=== PATIENT | female | born 1955 | race Caucasian/White ===

== ENCOUNTER 2017-04-02 19:32 | Emergency (ER) | payer MEDICAID ==
[2017-04-02 20:24] VITALS: BP 140/86; PULSE 66; RESP 16; TEMP 98.3
--- NOTE | 2017-04-02 20:50 | XR ---
PROCEDURE: XR soft tissue neck DATE AND TIME: 04/02/2017 8:07 PM REFERRING PHYSICIAN: Riddhi Wall CLINICAL INDICATION: PHH, Pain TECHNIQUE: Department protocol. COMPARISON: None FINDINGS: The airway is unremarkable. The epiglottis has normal appearance on the lateral radiograph. Soft tiss ues and skeletal structures are negative for acute findings. IMPRESSION: NO ACUTE PROCESS.
--- NOTE | 2017-04-02 20:52 | ED ---
ENT HPI - General Chief complaint: ENT Stated complaint: Head pain Time Seen by Provider: 04/02/17 19:38 Source: patient, RN notes reviewed Mode of arrival: ambulatory Limitations: no limitations - History of Present Illness Initial comments: This is a 61-year-old female who presents to the emergency department chief complaint of right ear pain. Patient states that she developed a sore throat last and on Sunday developed right ear pain. She presented to her PCP on Sunday who prescribed her Augmentin. Patient states that her sore throat went away but her ear pain has gotten worse. She states she presented to her PCP this morning who advised her to present to the emergency department. Patient describes the pain as sharp and shooting occurring every couple minutes. She states the pain radiates from her inner ear to her right cheek. She denies cough, congestion, sore throat, fever, chills, nausea or vomiting, diarrhea or constipation, abdominal pain, hearing or visual changes, numbness or tingling, or rashes. - Related Data Home Medications Medication Instructions Recorded Confirmed Metoprolol Succinate [Toprol XL] 25 mg PO DAILY 07/08/14 04/02/17 Cholecalciferol (Vitamin D3) 50,000 unit PO DAILY 11/02/15 04/02/17 [Vitamin D] Previous Rx's Medication Instructions Recorded Edoxaban Tosylate [Savaysa] 60 mg PO DAILY tablet 09/06/15 Allergies Allergy/AdvReac Type Severity Reaction Status Date / Time codeine Allergy Anaphylaxis Verified 04/02/17 19:37 Review of Systems ROS Statement: Those systems with pertinent positive or pertinent negative responses have been documented in the HPI. ROS Other: All systems not noted in ROS Statement are negative. Past Medical History Past Medical History: Hypertension Additional Past Medical History / Comment(s): ARRYTHMIA/SARCODOSIS History of Any Multi-Drug Resistant Organisms: None Reported Past Surgical History: Breast Surgery, Orthopedic Surgery, Tubal Ligation Additional Past Surgical History / Comment(s): BREAST BIOPSY X 3/RT WRIST/LT KNEE SURG, Broke back a couple years ago. Past Anesthesia/Blood Transfusion Reactions: No Reported Reaction Past Psychological History: No Psychological Hx Reported Smoking Status: Former smoker Past Alcohol Use History: None Reported Past Drug Use History: None Reported - Past Family History Mother Family Medical History: Diabetes Mellitus, Hypertension General Exam - General Exam Comments Initial Comments: General: Awake and alert, well-developed; in no apparent distress. HEENT: Head atraumatic, normocephalic. Pupils are equal, round and reactive to light. Extraocular movements intact. Oropharynx moist without erythema or exudate. Bilateral TMs are mildly erythematous. Right TM has mild effusion. Neck: Supple. Normal ROM. No adenopathy. Cardiovascular: Regular rate and rhythm. No murmurs, rubs or gallops. Chest symmetrical. Respiratory: Lungs clear to auscultation bilaterally. No wheezes, rales or rhonchi. Normal respiratory effort with no use of accessory muscles. Skin: [place], warm and dry without rashes or lesions. Neurological: Alert and oriented x3. CN II-XII grossly intact. Speech is fluent and answers are appropriate. No focal neuro deficits. Psychiatric: Normal mood and affect. No overt signs of depression or anxiety noted. Limitations: no limitations Course Vital Signs 04/02/17 19:35 Temperature 98.2 F Pulse Rate 70 Respiratory 20 Rate Blood Pressure 176/76 O2 Sat by Pulse 97 Oximetry Medical Decision Making - Medical Decision Making This case was discussed with attending physician, Dr. Ware. Xray soft tissue of neck revealed no acute process. Patient will be discharged home with recommendation finish her course of Augmentin. She is to return to the emergency department if pain does not resolve after course of Augmentin. Patient voices understanding and is in agreement with the plan. All questions were answered. - Radiology Data Radiology results: report reviewed Soft Tissue Neck Findings: The airway is unremarkable. The epiglottis has normal appearance on the lateral radiograph. Soft tissues and skeletal structures are negative for acute findings. Disposition Clinical Impression: Otitis media Disposition: HOME SELF-CARE Condition: Good Instructions: Earache (ED) Additional Instructions: Please finish course of Augmentin. Please follow up with primary care provider within 1-2 days. Please follow up with PCP after course of Augmentin if pain is still present. Return to emergency department if symptoms should worsen or any concerns arise. Referrals: Fran Escobar MD [Primary Care Provider] - 1-2 days Time of Disposition: 20:54
== END 2017-04-02 21:05 | disposition home or self-care (01) ==
LOC: EC 19:32
DX: H66.91 Otitis media, unspecified, right ear (principal); I10 Essential (primary) hypertension; Z87.891 Personal history of nicotine dependence; Z79.899 Other long term (current) drug therapy; Z88.5 Allergy status to narcotic agent
CPT/HCPCS: 70360; 99284

== ENCOUNTER → 2017-08-02 | Outpatient (CLI) | payer MEDICAID ==
[2017-08-02 08:11] LABS: ALT 32 U/L (9-52); AST 26 U/L (14-36); Albumin 3.9 g/dL (3.5-5.0); Alkaline Phosphatase 90 U/L (38-126); Anion Gap 12 mmol/L; Blood Urea Nitrogen 13 mg/dL (7-17); Calcium 9.3 mg/dL (8.4-10.2); Carbon Dioxide 26 mmol/L (22-30); Chloride 106 mmol/L (98-107); Cholesterol 171 mg/dL (<200); Glucose 103 mg/dL (74-99); HDL Cholesterol 43 mg/dL (40-60); LDL Cholesterol,Calculated 102 mg/dL (0-99); Potassium 4.7 mmol/L (3.5-5.1); Sodium 144 mmol/L (137-145); Total Bilirubin 0.5 mg/dL (0.2-1.3); Total Protein 6.7 g/dL (6.3-8.2); Triglycerides 131 mg/dL (<150)
[2017-08-02 21:23] LABS: Hemoglobin A1C 5.5 % (4.0-6.0)
== END | disposition home or self-care (01) ==
LOC: LABWHC1 07:10
PROVIDERS: ATTEND Internal Medicine Cardiovascular Disease
DX: E78.5 Hyperlipidemia, unspecified (principal); Z86.39 Personal history of other endocrine, nutritional and metabolic disease
CPT/HCPCS: 36415; 80053; 80061; 83036

== ENCOUNTER 2018-01-06 10:10 | Observation (INO) | payer BC, MEDICAID ==
[2018-01-06] MEDS ORDERED: IBUPROFEN 600 MG TAB PO STA (10:46)
[2018-01-06] MEDS ORDERED: DIAZEPAM 5 MG TAB PO STA (10:46)
[2018-01-06] MEDS ORDERED: DEXAMETHASONE 4 MG TAB PO STA (10:47)
--- NOTE | 2018-01-06 10:54 | ED ---
Back Pain HPI - General Chief Complaint: Back Pain/Injury Stated Complaint: Back Spasms Time Seen by Provider: 01/06/18 10:38 Source: patient Limitations: no limitations - History of Present Illness Initial Comments: 62-year-old female presenting with right paraspinal lumbar back pain. Patient states began 1 week ago without inciting event. She states has been worsening and causing her to be unable to sleep secondary to spasms. States she has a history of similar symptoms in the past her last flareup being in April. States at that time she was treated with steroids and Flexeril with relief. Patient sees Dr. Henson states she has an appointment with him on January 22. States she has been taking tramadol and Flexeril at home without relief. She denies any saddle anesthesia, lower extremely weakness, numbness or paresthesias , loss of bowel or bladder control or urinary retention. Denies history of CA. Patient states she has Atrial Fibrillation and takes Metoprolol daily but has not been on anticoagulation therapy in 3 years. Denies chest pain or shortness of breath. - Related Data Home Medications Medication Instructions Recorded Confirmed Metoprolol Succinate [Toprol XL] 25 mg PO DAILY 07/08/14 04/02/17 Cholecalciferol (Vitamin D3) 50,000 unit PO DAILY 11/02/15 04/02/17 [Vitamin D] Previous Rx's Medication Instructions Recorded Edoxaban Tosylate [Savaysa] 60 mg PO DAILY tablet 09/06/15 HYDROcodone/APAP 5-325MG [[place] 5] 1 - 2 each PO Q6HR PRN #12 tab 01/06/18 traMADol HCL [traMADol HCL ER] 100 mg PO DAILY 3 Days #3 cap 01/06/18 Allergies Allergy/AdvReac Type Severity Reaction Status Date / Time codeine Allergy Anaphylaxis Verified 04/02/17 19:37 Review of Systems ROS Statement: Those systems with pertinent positive or pertinent negative responses have been documented in the HPI. Review of Systems Constitutional: Denies fever, chills Eyes: Denies change in vision, Denies pain Ears, nose, mouth, throat: Denies headaches, Denies sore throat Cardiovascular: Denies chest pain. Denies palpitations Respiratory: Denies shortness of breath, Denies cough Gastrointestinal: Denies abdominal pain. Denies nausea, vomiting, diarrhea. Genitourinary: Denies hematuria, Denies infections Musculoskeletal: Positive lumbar paraspinal pain. Integumentary: Denies rash Neurological: Denies headache, focal weakness, focal numbness Psychiatric: Denies anxiety, Denies depression Hematologic/Lymphatic: Denies easy bleeding or bruising ROS Other: All systems not noted in ROS Statement are negative. Past Medical History Past Medical History: Hypertension Additional Past Medical History / Comment(s): ARRYTHMIA/SARCODOSIS History of Any Multi-Drug Resistant Organisms: None Reported Past Surgical History: Breast Surgery, Orthopedic Surgery, Tubal Ligation Additional Past Surgical History / Comment(s): BREAST BIOPSY X 3/RT WRIST/LT KNEE SURG, Broke back a couple years ago. Past Anesthesia/Blood Transfusion Reactions: No Reported Reaction Past Psychological History: No Psychological Hx Reported Smoking Status: Former smoker Past Alcohol Use History: None Reported Past Drug Use History: None Reported - Past Family History Mother Family Medical History: Diabetes Mellitus, Hypertension General Exam - General Exam Comments Initial Comments: General: Awake, alert, No acute Distress HENT: Normocephalic. Atraumatic Eyes: PERRL. EOMI. No scleral icterus. No injected conjunctiva Neck: Full ROM Chest/Lungs: Clear to auscultation bilaterally. No wheezing, rhonchi, or rales Cardiac: Regular rate, rhythm. No murmurs or rubs Abdomen/GI: Soft, nontender, nondistended. No rebound, guarding, or rigidity. Musculoskeletal: Full ROM. L3-S1 sensation intact bilaterally. Normal gait. No midline cervical, thoracic, or lumbar tenderness. Right sacroiliac pain. Skin: Warm, dry, intact Neurologic: A/Ox3, no weakness, no sensory deficit, no abdnormal gait, no coordination deficit Limitations: no limitations Course Vital Signs 01/06/18 01/06/18 10:14 11:25 Temperature 98.1 F Pulse Rate 65 63 Respiratory 18 18 Rate Blood Pressure 132/54 148/65 O2 Sat by Pulse 99 98 Oximetry Medical Decision Making - Medical Decision Making 52-year-old female presenting with back pain. Initial exam the patient is awake , alert, no acute distress. VSS. Patient has no saddle anesthesia, bowel or bladder symptoms, midline lumbar pain, and is neurologically intact. She afebrile and nontoxic appearing. She has equal pulses and no chest pain or abdominal pain. Infectious process, epidural abscess, or aortic pathology unlikely at this time. Patient has no history of kidney stones and pain is not consistent with that clinical presentation. Imaging is negative for acute process. She is able to ambulate. Patient given Decadron, [place], And Motrin on department. Patient's pain was mildly improved. Offered patient admission at this time patient would like to be discharged home and follow-up with her back doctor this week. No further emergent workup indicated. The patient was given return to ED instructions. They were instructed to follow up with their primary care provider. Stable for discharge at this time. Disposition Clinical Impression: Back pain, Mechanical back pain Disposition: HOME SELF-CARE Condition: Good Instructions: Acute Low Back Pain (ED), Chronic Back Pain (ED) Additional Instructions: Call your doctor this week. Return to ED if unable or urinate or have bowel movements, if you are unable to walk, or if you lose control of your bowel or bladder. Prescriptions: HYDROcodone/APAP 5-325MG [[place] 5] 1 - 2 each PO Q6HR PRN #12 tab PRN Reason: Pain traMADol HCL [traMADol HCL ER] 100 mg PO DAILY 3 Days #3 cap Is patient prescribed a controlled substance at d/c from ED?: Yes When asked, does pt state using other controlled substances?: Yes If prescribed controlled substance>3 days was MAPS reviewed?: Prescribed <3 Days Referrals: Jodee Ramachandran MD [Primary Care Provider] - 1-2 days Rosenda Henson DO [Doctor of Osteopathic Medicine] - 1-2 days
--- NOTE | 2018-01-06 12:02 | XR ---
EXAMINATION TYPE: XR sacroiliac joint comp BILAT , 3 VIEWS DATE OF EXAM ORDERED: 01/06/2018 HISTORY: Pain. COMPARISON: None. FINDINGS: The sacroiliac joints are unremarkable. There is no sclerosis or erosions. There is degene rative disc disease at L5-S1. IMPRESSION: 1. NORMAL SACROILIAC JOINTS. 2. DEGENERATIVE DISC DISEASE, L5-S1.
--- NOTE | 2018-01-06 12:04 | XR ---
EXAMINATION TYPE: XR lumbar spine 2 or 3V , 3 VIEWS DATE OF EXAM ORDERED: 01/06/2018 HISTORY: Pain. COMPARISON: Previous study dated 10/26/2010. FINDINGS: There is degenerative disc disease and a vacuum phenomena present at L5-S1. Bony alignment is normal. There is no spondylolysis or spondylolisthesis. The pedicles are intact.. IMPRESSION: 1. NO ACUTE OSSEOUS LESION. 2. DEGENERATIVE CHANGE.
[2018-01-06] MEDS ORDERED: HYDROcodone/APAP 5-325MG 1 EACH TAB PO STA (12:22)
[2018-01-06] MEDS ORDERED: IBUPROFEN 400 MG TAB PO PRN (14:05)
[2018-01-06] MEDS ORDERED: ACETAMINOPHEN TAB 325 MG TAB PO PRN (14:05)
--- NOTE | 2018-01-06 14:15 | ED ---
Disposition Clinical Impression: Back pain, Mechanical back pain, Intractable low back pain Disposition: ADMITTED IP TO THIS [facility] Condition: Good Instructions: Acute Low Back Pain (ED), Chronic Back Pain (ED) Additional Instructions: Call your doctor this week. Return to ED if unable or urinate or have bowel movements, if you are unable to walk, or if you lose control of your bowel or bladder. Prescriptions: HYDROcodone/APAP 5-325MG [[place] 5] 1 - 2 each PO Q6HR PRN #12 tab PRN Reason: Pain traMADol HCL [traMADol HCL ER] 100 mg PO DAILY 3 Days #3 cap Referrals: Rosenda Henson DO [Doctor of Osteopathic Medicine] - 1-2 days Jodee Ramachandran MD [Primary Care Provider] - 1-2 days Decision Date: 01/06/18 Decision Time: 14:15
--- NOTE | 2018-01-06 14:16 | P.HPIM ---
History of Present Illness H&P Date: 01/06/18 Chief Complaint: Back pain 62-year-old female presented to the emergency department because of right sided lower back pain. Patient states began 1 week ago after she was working with a shovel in the barn. Patient's back pain history goes back to about 7 years ago when she injured her back after she fell off of a horse. After the fall she developed 2 vertebral compression fractures. She was evaluated by orthopedics who did not recommend surgical intervention. She states that the pain has been worsening and causing her to be unable to sleep secondary to spasms. She stated that she has been taking tramadol and Flexeril at home without relief. States she has a history of similar symptoms in the past, her last flareup being in April. Patient has been seeing Dr. Henson, last appointment was in May. Her next appointment will be January 22. She denies any numbness or paresthesias in the lower extremities, no lower extremely weakness, no loss of bowel or bladder control or urinary retention. No chest pain or shortness of breath. No nausea or vomiting. No fevers or chills. Review of Systems 12 point review of system performed, negative except HPI Past Medical History Past Medical History: Hypertension Additional Past Medical History / Comment(s): ARRYTHMIA/SARCODOSIS History of Any Multi-Drug Resistant Organisms: None Reported Past Surgical History: Breast Surgery, Orthopedic Surgery, Tubal Ligation Additional Past Surgical History / Comment(s): BREAST BIOPSY X 3/RT WRIST/LT KNEE SURG, Broke back a couple years ago. Past Anesthesia/Blood Transfusion Reactions: No Reported Reaction Past Psychological History: No Psychological Hx Reported Smoking Status: Former smoker Past Alcohol Use History: None Reported Past Drug Use History: None Reported - Past Family History Mother Family Medical History: Diabetes Mellitus, Hypertension Medications and Allergies Home Medications Medication Instructions Recorded Confirmed Type Acetaminophen/Diphenhydramine 2 tab PO HS 01/06/18 01/06/18 History [Tylenol PM 500-25mg] Cyclobenzaprine [Flexeril] 10 mg PO TID PRN 01/06/18 01/06/18 History HYDROcodone/APAP 5-325MG [[place] 5] 1 - 2 each PO Q6HR PRN #12 tab 01/06/18 Rx Loperamide HCl [Imodium A-D] 1 mg PO DAILY 01/06/18 01/06/18 History Metoprolol Succinate [Toprol XL] 25 mg PO DAILY 01/06/18 01/06/18 History traMADol HCL [Ultram] 100 mg PO Q6H PRN 01/06/18 01/06/18 History traMADol HCL [traMADol HCL ER] 100 mg PO DAILY 3 Days #3 cap 01/06/18 Rx Allergies Allergy/AdvReac Type Severity Reaction Status Date / Time codeine Allergy Anaphylaxis Verified 01/06/18 13:42 Physical Exam Vitals: Vital Signs Temp Pulse Resp BP Pulse Ox 01/06/18 11:25 63 18 148/65 98 01/06/18 10:14 98.1 F 65 18 132/54 99 Intake and Output 01/05/18 01/06/18 01/06/18 22:59 06:59 14:59 Other: Weight 92.986 kg Constitutional: No acute distress, conversant, pleasant Eyes:Anicteric sclerae, moist conjunctiva, no lid-lag, PERRLA, ENMT: Oropharynx clear, no erythema, exudates Neck: Supple, FROM, no masses, or JVD, No carotid bruits, No thyromegaly Lungs: Clear to auscultation, Clear to percussion, Normal respiratory effort, no accessory muscle use Cardiovascular: Heart regular in rate and rhythm, No murmurs, gallops, or rubs, No peripheral edema Abdominal: Soft, Nontender, no guarding, rebound or rigidity, Normoactive bowel sounds, No hepatomegaly, No splenomegaly, No palpable mass Skin: Normal temperature, tone, texture, turgor, no induration, No subcutaneous nodules, No rash, lesions, No ulcers Extremities: Right sided lower back tenderness to deep palpation. No digital cyanosis, No clubbing, Pedal pulses intact and symmetrical, Radial pulses intact and symmetrical, No calf tenderness Psychiatric: Alert and oriented to person, place and time, appropriate affect, intact judgement Neuro: Muscles Strength 5/5 in all 4 extremities, Sensation to light touch grossly present throughout, Cranial nerves II-XII grossly intact, no focal sensory deficits Assessment and Plan Plan: Acute on chronic lower back pain, intractable Failed outpatient therapy X-rays reviewed Consult orthopedics, if no surgery recommended would order physical therapy evaluation Pain control with narcotics, NSAIDs and Tylenol as needed History of hypertension, history of sarcoidosis: Stable Resume home meds DVT prophylaxis Ambulatory, low risk, not indicated
[2018-01-06] MEDS: HYDROmorphone 1 MG/ML 1 ML SYRINGE IV PRN ×2 (17:50→21:01)
[2018-01-06] MEDS ORDERED: ACETAMINOPHEN TAB 500 MG TAB PO SCH (21:00)
[2018-01-06] MEDS: diphenhydrAMINE 25 MG CAP PO SCH (23:10)
[2018-01-06] MEDS: oxyCODONE-APAP 5-325MG 1 EACH TAB PO PRN (23:13)
[2018-01-07] MEDS: HYDROmorphone 1 MG/ML 1 ML SYRINGE IV PRN ×5 (02:26→22:24)
[2018-01-07] MEDS: METOPROLOL SUCCINATE (ER) 25 MG TAB.ER.24H PO SCH (08:09)
[2018-01-07 08:12] LABS: Anion Gap 10 mmol/L; Blood Urea Nitrogen 23 mg/dL (7-17); Calcium 9.4 mg/dL (8.4-10.2); Carbon Dioxide 22 mmol/L (22-30); Chloride 106 mmol/L (98-107); Glucose 146 mg/dL (74-99); Phosphorus 3.1 mg/dL (2.5-4.5); Potassium 4.8 mmol/L (3.5-5.1); Sodium 138 mmol/L (137-145)
[2018-01-07 08:18] LABS: Basophils % (A) 0 %; Eosinophils % (A) 0 %; HCT 37.3 % (34.0-46.0); HGB 12.5 gm/dL (11.4-16.0); Lymphocytes # (A) 1.4 k/uL (1.0-4.8); Lymphocytes % (A) 10 %; MCH 30.6 pg (25.0-35.0); MCHC 33.4 g/dL (31.0-37.0); MCV 91.4 fL (80.0-100.0); Mean Platelet Volume 7.9; Monocytes # (A) 0.7 k/uL (0-1.0); Monocytes % (A) 5 %; Neutrophils # (A) 11.8 k/uL (1.3-7.7); Neutrophils % (A) 84 %; Platelet Count 234 k/uL (150-450); RBC 4.09 m/uL (3.80-5.40); RDW 13.2 % (11.5-15.5)
--- NOTE | 2018-01-07 08:51 | P.CNOR ---
History of Present Illness - [facility] Consult date: 01/07/18 Requesting physician: Annalee Javed Consult reason: low back pain (Right-sided low back pain and muscle spasm) History of present illness: Patient is a very pleasant 62-year-old female who is well known to our service who is seen and examined at bedside for further evaluation of right-sided low back pain. She states she was shoveling in the barn approximately one week ago and the following day started to experience significant right-sided low back pain. She had similar symptoms after the same type of movement in April 2017. At that time Flexeril and a steroid taper significantly improved her symptoms. She currently denies any lower extremity weakness or radiculopathy bilaterally. Since her admittance to the hospital, her pain is somewhat better but not adequately resolved. She is known have degenerative changes at L5-S1. She is scheduled for follow-up evaluation outpatient setting on 01/22/[address] Henson. She denies specific injury but knows she was shoveling in a flexed forward position which has historically exacerbated her symptoms. Past Medical History Past Medical History: Hypertension Additional Past Medical History / Comment(s): ARRYTHMIA/SARCODOSIS History of Any Multi-Drug Resistant Organisms: None Reported Past Surgical History: Breast Surgery, Orthopedic Surgery, Tubal Ligation Additional Past Surgical History / Comment(s): BREAST BIOPSY X 3/RT WRIST/LT KNEE SURG, Broke back a couple years ago. 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 - Past Family History Mother Family Medical History: Diabetes Mellitus, Hypertension Medications and Allergies Home Medications Medication Instructions Recorded Confirmed Type Acetaminophen/Diphenhydramine 2 tab PO HS 01/06/18 01/06/18 History [Tylenol PM 500-25mg] Cyclobenzaprine [Flexeril] 10 mg PO TID PRN 01/06/18 01/06/18 History HYDROcodone/APAP 5-325MG [[place] 5] 1 - 2 each PO Q6HR PRN #12 tab 01/06/18 Rx Loperamide HCl [Imodium A-D] 1 mg PO DAILY 01/06/18 01/06/18 History Metoprolol Succinate [Toprol XL] 25 mg PO DAILY 01/06/18 01/06/18 History traMADol HCL [Ultram] 100 mg PO Q6H PRN 01/06/18 01/06/18 History traMADol HCL [traMADol HCL ER] 100 mg PO DAILY 3 Days #3 cap 01/06/18 Rx predniSONE 20 mg PO DIRECTED #24 tab 01/07/18 Rx Allergies Allergy/AdvReac Type Severity Reaction Status Date / Time codeine Allergy Anaphylaxis Verified 01/06/18 13:42 Physical Examination Physical exam: Patient is awake, alert, and oriented 3 Vital signs stable Good chest excursion with deep inspiration and expiration Abdomen soft nontender Examination of lumbar spine reveals skin is intact with no abrasions, lacerations, or bruises; no erythema, purulence or signs of infection He will palpation over the right lower lumbar spine with evidence of paravertebral spasm Dorsiflexion, plantarflexion, and extensor hallucis longus positive sustained bilaterally Lower extremity strength 5/5 bilaterally Patellar reflex 2+ bilaterally and Achilles reflexes 0+ bilaterally No lower extremity hyperreflexia bilaterally No signs or symptoms of DVT; no calf pain No pain with internal and external rotation of the hips bilaterally Neurovascularly intact Results Pertinent studies: X-rays lumbosacral spine: L5-S1 degenerative disease and vacuum disc phenomenon ; overall alignment appears to be adequately maintained; no evidence of spondylolysis or spondylolisthesis; no acute osseous lesion X-rays of the sacroiliac joints: Normal sacroiliac joints with no sclerosis or erosions; L5-S1 degenerative disc disease - Labs Labs: Abnormal Lab Results - Last 24 Hours (Table) 01/07/18 01/07/18 Range/Units 07:37 07:37 WBC 14.0 H (3.8-10.6) k/uL Neutrophils # 11.8 H (1.3-7.7) k/uL BUN 23 H (7-17) mg/dL Glucose 146 H (74-99) mg/dL H & H 01/07/18 Range/Units 07:37 Hgb 12.5 (11.4-16.0) gm/dL Hct 37.3 (34.0-46.0) % Result Diagrams: 01/07/18 07:37 01/07/18 07:37 Assessment and Plan Assessment: Assessment: Intractable right sided low back pain L5-S1 degenerative disc disease Lumbar Paravertebral muscle spasm (1) Degenerative disc disease at L5-S1 level Current Visit: Yes Status: Acute Code(s): M51.36 - OTHER INTERVERTEBRAL DISC DEGENERATION, LUMBAR REGION SNOMED Code(s): 61175713 (2) Lumbar paraspinal muscle spasm Current Visit: Yes Status: Acute Code(s): M62.830 - MUSCLE SPASM OF BACK SNOMED Code(s): 22023319911907987 (3) Intractable low back pain Current Visit: Yes Status: Acute Code(s): M54.5 - LOW BACK PAIN SNOMED Code(s): 83084919867429860 Plan: Plan: 1. Patient is known to have degenerative changes at L5-S1. Imaging shows no acute change of the sacroiliac joints. Patient has been experiencing muscle spasms of right-sided low back pain that is exacerbated with increased activities. She denies any lower extremity weakness or radiculopathy bilaterally. She is not having any neurological change. Her initial symptoms started approximately 1 week ago after shoveling in the barn. She had similar symptoms in April 2017 in which her symptoms were alleviated with steroid medication and muscle relaxers. Since her admittance to the hospital, she has been receiving Flexeril, Dilaudid, oxycodone, Motrin, and Tylenol as prescribed as needed for relief of her symptoms. She has not been receiving steroid medication. At this time, we'll plan to add Solu-Medrol 80 mg IV every 8 hours during her admittance. We will discontinue Motrin. We will also plan to discharge her on a 12 day prednisone taper which she will take prednisone 20 mg tabs, 3 tabs for 4 days, 2 tabs for 4 days, then 1 tab for 4 days. She may also continue with Flexeril in the outpatient setting as previously prescribed. We will plan have her follow-up as previous scheduled on 01/22/2018 for further evaluation and treatment. We did discuss we are not currently planning for acute surgical intervention regards to her lumbosacral spine. She agrees this is a good plan of care we'll plan to follow-up as scheduled. 2. Medicine to continue following the patient closely 3. From an orthopedic spine standpoint, patient is currently cleared for discharge once cleared by medicine 4. Following discharge, patient will follow up with Dr. Terry Henson at [facility] as previously scheduled 5. Patient has been discussed in detail with Dr. Terry Henson and he agrees with this plan Time with Patient: Less than 30
[2018-01-07] MEDS: oxyCODONE-APAP 5-325MG 1 EACH TAB PO PRN ×3 (08:58→23:35)
[2018-01-07] MEDS: methylPREDNISolone SOD SUCCI 125 MG/2 ML VIAL IV SCH ×3 (08:58→23:36)
--- NOTE | 2018-01-07 11:50 | P.PN ---
Subjective Progress Note Date: 01/07/18 Patient is feeling slightly better today. She was seen by orthopedic and earlier and was started on IV steroids. She said that her pain is mostly when she is getting up from the bed and transitioning to the chair or vice versa. She denies any radiculopathy or lower extremity weakness. Objective - Vital Signs Vital signs: Vital Signs Temp 98.3 F 01/07/18 06:25 Pulse 70 01/07/18 06:25 Resp 16 01/07/18 08:58 BP 117/68 01/07/18 06:25 Pulse Ox 94 L 01/07/18 06:25 Intake & Output 01/06/18 01/07/18 01/07/18 18:59 06:59 18:59 Weight 92.986 kg Other: # Voids 2 1 # Bowel Movements 0 - Exam General: The patient is awake and alert, in no distress Eye: there is normal conjunctiva bilaterally. Neck: The neck is supple, there is no JVD. Cardiovascular: Normal S1-S2, no S3-S4, no murmurs. Respiratory: Lungs clear to auscultation bilaterally Gastrointestinal: Abdomen is soft, nontender Musculoskeletal: There is no pedal edema. Neurological:. Speech is normal. Skin: Skin is warm and dry - Labs CBC & Chem 7: 01/07/18 07:37 01/07/18 07:37 Labs: Abnormal Lab Results - Last 24 Hours (Table) 01/07/18 01/07/18 Range/Units 07:37 07:37 WBC 14.0 H (3.8-10.6) k/uL Neutrophils # 11.8 H (1.3-7.7) k/uL BUN 23 H (7-17) mg/dL Glucose 146 H (74-99) mg/dL Assessment and Plan Assessment: Acute on chronic lower back pain, intractable Failed outpatient therapy X-rays reviewed Consult orthopedics, awaiting physical therapy evaluation Pain control with narcotics and Tylenol as needed Started on IV Solu-Medrol by orthopedic and plan to transition to oral prednisone tomorrow History of hypertension, history of sarcoidosis: Stable Resume home meds DVT prophylaxis Ambulatory, low risk, not indicated Anticipate discharge home tomorrow
[2018-01-07] MEDS ORDERED: PANTOPRAZOLE 40 MG/10 ML VIAL IVP SCH (12:00)
[2018-01-07] MEDS ORDERED: PNEUMOCOCCAL VACC-PNEUMOVAX 23 25 MCG/0.5 ML VIAL IM ONE (15:53)
[2018-01-07] MEDS: diphenhydrAMINE 25 MG CAP PO SCH (22:04)
[2018-01-08] MEDS: HYDROmorphone 1 MG/ML 1 ML SYRINGE IV PRN ×2 (04:59→12:56)
[2018-01-08] MEDS: oxyCODONE-APAP 5-325MG 1 EACH TAB PO PRN ×4 (05:00→21:09)
[2018-01-08] MEDS: METOPROLOL SUCCINATE (ER) 25 MG TAB.ER.24H PO SCH (09:42)
[2018-01-08] MEDS: PANTOPRAZOLE 40 MG TABLET PO SCH (09:42)
[2018-01-08] MEDS: methylPREDNISolone SOD SUCCI 125 MG/2 ML VIAL IV SCH (09:43)
--- NOTE | 2018-01-08 13:16 | P.PN ---
Subjective Progress Note Date: 01/08/18 Patient reports that her back pain is worse today. She denies any shooting pain or radiculopathy. No lower extremity numbness or weakness. She is requiring IV dye lauded more frequently. She was tearful when I saw her this morning. She reported that she is not ready to go home yet. She did not get up for work with physical therapy. Objective - Vital Signs Vital signs: Vital Signs Temp 97.9 F 01/08/18 07:00 Pulse 63 01/08/18 07:00 Resp 20 01/08/18 07:00 BP 135/75 01/08/18 07:00 Pulse Ox 94 L 01/08/18 07:00 Intake & Output 01/07/18 01/08/18 01/08/18 18:59 06:59 18:59 Intake Total 1200 Balance 1200 Intake: Oral 1200 Other: Voiding Method Toilet Toilet # Voids 4 2 - Exam General: The patient is awake and alert, in no distress Eye: there is normal conjunctiva bilaterally. Neck: The neck is supple, there is no JVD. Cardiovascular: Normal S1-S2, no S3-S4, no murmurs. Respiratory: Lungs clear to auscultation bilaterally Gastrointestinal: Abdomen is soft, nontender Musculoskeletal: There is no pedal edema. Neurological:. Speech is normal. Skin: Skin is warm and dry - Labs CBC & Chem 7: 01/07/18 07:37 01/07/18 07:37 Assessment and Plan Assessment: Acute on chronic lower back pain, intractable Failed outpatient therapy X-rays reviewed Patient was seen and evaluated by orthopedic. Started on high-dose IV Solu- Medrol will be switched to oral prednisone taper course tomorrow. Pain control with narcotics and Tylenol as needed No further recommendations by orthopedic. History of hypertension, history of sarcoidosis: Stable Resume home meds DVT prophylaxis with subcu heparin Discussed with the patient switching pain medication to oral today to make sure her pain is well-controlled. Plan for discharge tomorrow. Awaiting PT evaluation
[2018-01-08] MEDS: HEPARIN SODIUM,PORCINE 5,000 UNIT/ML 1 ML VIAL SQ SCH ×2 (14:38→21:10)
[2018-01-08 16:53] VITALS: RESP 16
[2018-01-08] MEDS: CYCLOBENZAPRINE 10 MG TAB PO PRN ×2 (17:24→21:39)
[2018-01-08] MEDS: diphenhydrAMINE 25 MG CAP PO SCH (23:13)
[2018-01-09] MEDS: oxyCODONE-APAP 5-325MG 1 EACH TAB PO PRN ×4 (02:12→14:45)
[2018-01-09 06:12] VITALS: BP 147/73; PULSE 63; TEMP 97.1
[2018-01-09] MEDS: CYCLOBENZAPRINE 10 MG TAB PO PRN (07:45)
[2018-01-09] MEDS: METOPROLOL SUCCINATE (ER) 25 MG TAB.ER.24H PO SCH (08:09)
[2018-01-09] MEDS: HEPARIN SODIUM,PORCINE 5,000 UNIT/ML 1 ML VIAL SQ SCH (08:09)
[2018-01-09] MEDS: PANTOPRAZOLE 40 MG TABLET PO SCH (08:09)
[2018-01-09] MEDS ORDERED: predniSONE 20 MG TAB PO SCH (09:00)
--- NOTE | 2018-01-09 13:01 | P.DS ---
Providers Date of admission: 01/06/18 14:05 Expected date of discharge: 01/09/18 Attending physician: Annalee Javed MD Consults: 01/06/18 14:07 Consult Physician Routine Consulting Provider: Rosenda Henson Consult Reason/Comments: back pain Do you want consulting provider notified?: Yes Primary care physician: [facility] Course: This is a 62-year-old female with past medical history significant for chronic low back pain, essential hypertension, and underlying sarcoidosis who presented to the emergency room with intractable back pain acute on chronic that started after she was shoveling the barn. Patient was evaluated in the emergency room and x-ray of the lumbar spine showed chronic degenerative joint disease. Patient did not have any radiculopathy or muscle weakness. She was placed on observation was seen and evaluated by orthopedics. She was treated with end- stage, muscle relaxers, Tylenol, and opiates. She was given IV steroid 3 doses and switch to taper course prednisone per orthopedic recommendations. She will be discharged home in a stable condition. On the day of discharge her pain was very well controlled. Patient Condition at Discharge: Good Plan - Discharge Summary New Discharge Prescriptions: New HYDROcodone/APAP 5-325MG [[place] 5] 1 - 2 each PO Q6HR PRN #12 tab PRN Reason: Pain traMADol HCL [traMADol HCL ER] 100 mg PO DAILY 3 Days #3 cap predniSONE 20 mg PO DIRECTED #24 tab Pantoprazole [Protonix] 40 mg PO AC-BRKFST #14 tablet.dr Continue Metoprolol Succinate [Toprol XL] 25 mg PO DAILY Loperamide HCl [Imodium A-D] 1 mg PO DAILY Cyclobenzaprine [Flexeril] 10 mg PO TID PRN PRN Reason: Pain Discontinued Acetaminophen/Diphenhydramine [Tylenol PM 500-25mg] 2 tab PO HS traMADol HCL [Ultram] 100 mg PO Q6H PRN PRN Reason: Pain Discharge Medication List Cyclobenzaprine [Flexeril] 10 mg PO TID PRN 01/06/18 [History] HYDROcodone/APAP 5-325MG [[place] 5] 1 - 2 each PO Q6HR PRN #12 tab 01/06/18 [Rx] Loperamide HCl [Imodium A-D] 1 mg PO DAILY 01/06/18 [History] Metoprolol Succinate [Toprol XL] 25 mg PO DAILY 01/06/18 [History] traMADol HCL [traMADol HCL ER] 100 mg PO DAILY 3 Days #3 cap 01/06/18 [Rx] predniSONE 20 mg PO DIRECTED #24 tab 01/07/18 [Rx] Pantoprazole [Protonix] 40 mg PO CRISTIAN #14 tablet. 01/09/18 [Rx] Follow up Appointment(s)/Referral(s): Rosenda Henson DO [Doctor of Osteopathic Medicine] - 01/22/18 () Jodee Ramachandran MD [Primary Care Provider] - 1-2 days Patient Instructions/Handouts: Degenerative Disc Disease (DC) Activity/Diet/Wound Care/Special Instructions: Call your doctor this week. Return to ED if unable or urinate or have bowel movements, if you are unable to walk, or if you lose control of your bowel or bladder. Discharge Disposition: HOME SELF-CARE
== END 2018-01-09 15:35 | disposition home or self-care (01) ==
LOC: EC 10:10 → 4MS4W 14:05
PROVIDERS: ADMIT Internal Medicine; ATTEND Internal Medicine
DX: G89.29 Other chronic pain (principal); M54.5 Low back pain; M51.37 Other intervertebral disc degeneration, lumbosacral region; M51.36 Other intervertebral disc degeneration, lumbar region; M62.830 Muscle spasm of back; M62.838 Other muscle spasm; I49.9 Cardiac arrhythmia, unspecified; M47.9 Spondylosis, unspecified; I10 Essential (primary) hypertension; D86.9 Sarcoidosis, unspecified; Z87.891 Personal history of nicotine dependence; Z83.3 Family history of diabetes mellitus; Z79.1 Long term (current) use of non-steroidal anti-inflammatories (NSAID); Z79.891 Long term (current) use of opiate analgesic; Z79.899 Other long term (current) drug therapy; Z88.5 Allergy status to narcotic agent; Z23 Encounter for immunization
CPT/HCPCS: 99284 ×2; 96376 ×3; 96372 ×2; 96374; 96375; 80048; 83735; 84100; 85025; 72100; 72202; 90732; G0378 ×4; G0009; J8540; J1644 ×2; J2930 ×2; J1170 ×3; J7512; C9113

== ENCOUNTER → 2018-02-07 | Outpatient (CLI) | payer BC ==
--- NOTE | 2018-02-07 14:35 | MR ---
EXAMINATION TYPE: MR lumbar spine wo con DATE OF EXAM: 02/07/2018 COMPARISON: Plain film 01/06/2018 HISTORY: Low Back Pain TECHNIQUE: Multiplanar, multisequence images of the lumbar spine were acquired. L1-L2: Broad-based posterior disc bulge causes mild anterior mass effect on the thecal sac. No signif icant central canal stenosis or encroachment. L2-L3: Normal disc appearance without desiccation. No herniation, protrusion or disc bulging. No ca nal stenosis is present. Foramina are patent bilaterally. L3-L4: Posterior broad-based disc bulge causes anterolateral mass effect on the thecal sac is somewha t eccentric towards the right. No significant spinal stenosis or foraminal encroachment. There is fac et arthropathy with hypertrophy ligamentum flavum causing posterior lateral mass effect on the thecal sac. L4-L5: Posterior extension of endplate disc complex causes mild anterior mass effect on the thecal sa c. Circumferential extension of endplate disc complex results in foraminal encroachment greater on th e right than on the left which may be accentuated by spinal curvature L5-S1: Suspect transitional vertebral body is present. Axial image not performed. Lumbar segments are intact. No paraspinal masses are identified. Conus medullaris has a normal appe arance. Superior endplate of what is believed to be T12 shows a Schmorl's node, numbering is different than o n plain film due to probable rudimentary rib, correlate with plain film prior to any intervention. Th ere is multilevel spondylosis with endplate discogenic marrow signal change. Loss of disc height grea test at L4-5 IMPRESSION: Degenerative disc disease, additional findings above. Correlate with plain film prior to any interven tion.
== END | disposition home or self-care (01) ==
LOC: RADMRIMAIN 12:45
PROVIDERS: ATTEND Orthopaedic Surgery Orthopaedic Surgery of the Spine
DX: M51.36 Other intervertebral disc degeneration, lumbar region (principal); M51.26 Other intervertebral disc displacement, lumbar region; M47.816 Spondylosis without myelopathy or radiculopathy, lumbar region
CPT/HCPCS: 72148

== ENCOUNTER 2019-04-13 15:21 | Observation (INO) | payer BC, MEDICARE ==
[2019-04-13 15:34] VITALS: RESP 18
[2019-04-13] MEDS ORDERED: SODIUM CHLORIDE 0.9% 1,000 ML IV STA (16:32)
[2019-04-13] MEDS ORDERED: methylPREDNISolone SOD SUCCI 125 MG/2 ML VIAL IV STA (16:35)
[2019-04-13] MEDS ORDERED: KETOROLAC 30 MG/ML 1 ML VIAL IVP STA (16:35)
--- NOTE | 2019-04-13 17:03 | XR ---
EXAMINATION TYPE: XR lumbar spine 2 or 3V DATE OF EXAM: 04/13/2019 COMPARISON: NONE HISTORY: 01/06/2018 TECHNIQUE: 3 views FINDINGS: Vertebra have normal alignment. There is slight narrowing at L5-S1 disc. Abdominal aorta is atheromatous. There is mild 20% anterior wedging of L1 that appears old. IMPRESSION: Mild anterior wedging of L1 is slightly more than last exam. No acute fracture. Mild spon dylotic changes.
--- NOTE | 2019-04-13 17:09 | ED ---
Back Pain HPI - General Source: patient Limitations: physical limitation <Michaela Neves - Last Filed: 04/13/19 20:42> <Josiane Griffin - Last Filed: 04/15/19 16:50> - General Chief Complaint: Back Pain/Injury Stated Complaint: Back Pain Time Seen by Provider: 04/13/19 16:00 - History of Present Illness Initial Comments: Patient is a 63-year-old female presenting to emergency Department with complaints of low back pain 4 days. Patient does have chronic back pain and states last year she needed to be hospitalized for an acute flareup of her back pain. Patient states she does not remember doing anything in particular to cause her back pain, no falls or injuries. Patient states the pain started a minor proximally 4 days ago and has increased in nature. Patient denies any numbness and tingling into her lower extremities or saddle paresthesias. Patient has no radiation of her pain. Patient describes the pain as in her low back that is across to both sides. Patient states the best position is in a position on. Patient states she started to have pain with walking today. Patient denies fever, chills, nausea, vomiting. Patient has no other complaints at this time. Patient states she did take an Ultram approximately 10 AM this morning which only helps with her pain for approximately one hour. Upon arrival to ER, vital signs are stable. (Micahela Neves) - Related Data Home Medications Medication Instructions Recorded Confirmed Loperamide HCl [Imodium A-D] 1 - 2 mg PO DAILY 01/06/18 04/13/19 Metoprolol Succinate [Toprol XL] 25 mg PO BID 01/06/18 04/13/19 Acetaminophen/Diphenhydramine 2 tab PO HS 04/13/19 04/13/19 [Tylenol Pm Ex-Strength Caplet] Apixaban [Eliquis] 5 mg PO BID 04/13/19 04/13/19 Previous Rx's Medication Instructions Recorded Pantoprazole [Protonix] 20 mg PO AC-BRKFST 30 Days #30 04/15/19 tablet. Allergies Allergy/AdvReac Type Severity Reaction Status Date / Time codeine Allergy Anaphylaxis Verified 04/13/19 22:26 Review of Systems ROS Other: All systems not noted in ROS Statement are negative. <Michaela Neevs - Last Filed: 04/13/19 20:42> ROS Other: All systems not noted in ROS Statement are negative. <Josiane Griffin - Last Filed: 04/15/19 16:50> ROS Statement: Those systems with pertinent positive or pertinent negative responses have been documented in the HPI. Past Medical History Past Medical History: Atrial Fibrillation, Hypertension Additional Past Medical History / Comment(s): ARRYTHMIA/SARCODOSIS, fx back History of Any Multi-Drug Resistant Organisms: None Reported Past Surgical History: Breast Surgery, Orthopedic Surgery, Tubal Ligation Additional Past Surgical History / Comment(s): BREAST BIOPSY X 3/RT WRIST/LT KNEE SURG, Broke back a couple years ago. Past Anesthesia/Blood Transfusion Reactions: No Reported Reaction Past Psychological History: No Psychological Hx Reported Smoking Status: Former smoker Past Alcohol Use History: None Reported Past Drug Use History: None Reported - Past Family History Mother Family Medical History: Diabetes Mellitus, Hypertension <Michaela Neves - Last Filed: 04/13/19 20:42> General Exam Limitations: physical limitation <Michaela Neves - Last Filed: 04/13/19 20:42> - General Exam Comments Initial Comments: GENERAL: Well-appearing, well-nourished and in no acute distress. HEAD: Atraumatic, normocephalic. EYES: Pupils equal round and reactive to light, extraocular movements intact, sclera anicteric, conjunctiva are normal. ENT: Moist mucous membranes. NECK: Normal range of motion, supple without lymphadenopathy or JVD. LUNGS: Breath sounds clear to auscultation bilaterally and equal. No wheezes rales or rhonchi. HEART: Regular rate and rhythm without murmurs, rubs or gallops. ABDOMEN: Soft, nontender, normoactive bowel sounds. No guarding, no rebound. No masses appreciated. EXTREMITIES: Normal range of motion, no pitting or edema. No clubbing or cyanosis. Mild pain with palpation of the lower lumbar area, bilateral paraspinals. Patient has slightly decreased trunk motion secondary to pain. 5 out of 5 strength of the lower extremities, sensation is equal and bilateral. NEUROLOGICAL: Cranial nerves II through XII grossly intact. Normal speech. PSYCH: Normal mood, normal affect. SKIN: Warm, Dry, normal turgor, no rashes or lesions noted. (Michaela Neves) Course <Michaela Neves - Last Filed: 04/13/19 20:42> Vital Signs 04/13/19 04/13/19 15:31 21:00 Temperature 97.5 F L Pulse Rate 61 65 Respiratory 18 18 Rate Blood Pressure 152/67 168/82 O2 Sat by Pulse 97 96 Oximetry - Reevaluation(s) Reevaluation #1: 04/13/19 18:21 Patient reports mild improvement in symptoms. Patient states she was able to walk to the restroom with some decrease in pain. Patient was requesting something a little bit stronger to see if it can decrease her pain some more before going home. Ordered 4 mg of morphine. We will reassess. (Michaela Neves) Medical Decision Making <Michaela Neves - Last Filed: 04/13/19 20:42> - Lab Data Result diagrams: 04/14/19 05:12 04/14/19 05:15 <Josiane Griffin - Last Filed: 04/15/19 16:50> - Medical Decision Making Patient is a 63-year-old female presenting with acute on chronic low back pain 4 days[address] Patient does see Dr. Sanchez. X-rays reveal no acute changes from previous imaging. Patient was given Toradol, steroids, morphine with only slight improvement in symptoms. Patient does not feel comfortable going home as she is having a hard time walking. Case was discussed with Dr. Solis. Patient will be admitted for intractable back pain. Patient was accepted by Dr. Encinas. (Michaela Neves) I was available for consultation in the emergency department. The history and physical exam were done by the midlevel provider. I was consulted for this patients care. I reviewed the case with the midlevel provider and based on their presentation of the patient, I agree with the assessment, medical decision making and plan of care as documented. I evaluated the patient myself. Chart was dictated using [employer] dictation software. Attempts were made to correct any dictation errors however some typographical errors may persist. (Josiane Griffin) Disposition Is patient prescribed a controlled substance at d/c from ED?: No Decision Date: 04/13/19 Decision Time: 20:47 <Michaela Neves - Last Filed: 04/13/19 20:42> <Josiane Griffin - Last Filed: 04/15/19 16:50> Clinical Impression: Intractable low back pain Disposition: ADMITTED IP TO THIS [facility] Condition: Good
[2019-04-13] MEDS ORDERED: ONDANSETRON 4 MG/2 ML VIAL IVP STA (17:50)
[2019-04-13] MEDS ORDERED: MORPHINE SULFATE 4 MG/ML SYRINGE IVP STA (17:50)
[2019-04-13] MEDS ORDERED: ONDANSETRON 4 MG/2 ML VIAL IVP PRN (20:32)
[2019-04-13] MEDS ORDERED: ACETAMINOPHEN TAB 325 MG TAB PO PRN (20:32)
[2019-04-13] MEDS ORDERED: NALOXONE 0.4 MG/ML 1 ML VIAL IV PRN (20:32)
[2019-04-13] MEDS: MORPHINE SULFATE 4 MG/ML SYRINGE IV PRN (21:12)
[2019-04-13] MEDS: SODIUM CHLORIDE 0.9% 1,000 ML IV SCH (21:12)
[2019-04-13] MEDS: traMADol 50 MG TAB PO PRN (22:24)
[2019-04-13] MEDS: METOPROLOL SUCCINATE (ER) 25 MG TAB.ER.24H PO SCH (22:50)
[2019-04-13] MEDS: PANTOPRAZOLE 40 MG TABLET PO SCH (22:51)
[2019-04-13] MEDS: APIXABAN 5 MG TAB PO SCH (22:51)
[2019-04-14] MEDS: KETOROLAC 30 MG/ML 1 ML VIAL IVP SCH ×4 (00:09→16:14)
--- NOTE | 2019-04-14 00:10 | P.HPIM ---
History of Present Illness H&P Date: 04/13/19 Chief Complaint: low back pain 63-year-old female with history of paroxysmal A. fib and hypertension. Remote history of back injury falling from a horse Patient has been following up with orthopedic for many years. She presented with a 4 day history of intense low back pain not well controlled with home pain medications she takes tramadol and [place]. Patient denies any focal neurologic deficits or any radiculopathy. Pain is localized to her lower back makes it uncomfortable to get up from sitting or laying down position except uncomfortable to walk around describes the pain as 8 out of 10 in severity sharp in nature in her lower back nonradiating gets worse with changing position and after prolonged period of rest when she tries to walk around or move. Denies any urine incontinence denies any saddle anesthesia or numbness denies any focal neurologic deficits Patient comes in to the hospital today because of poorly controlled pain at home In the ED imaging showed increase anterior wedging of the L1 Patient lives with her and takes care of her dad. She was still in pain after morphine and Toradol. Patient requested to stay in the hospital as every time she moves around pain will increase and she was worried that she might have to come back to the hospital again she is requesting to be evaluated by orthopedics before she leaves the hospital. Despite myself and ER doctor reassuring the patient about the appropriateness of discharge from the ER and get evaluated by orthopedic in the office patient was adamant to stay in the hospital overnight to get evaluated by orthopedics in the morning she will be admitted under observation for pain control and orthopedic Teagan Review of Systems Pertinent positives as noted in HPI. All other systems were reviewed and are negative Past Medical History Past Medical History: Atrial Fibrillation, Hypertension Additional Past Medical History / Comment(s): ARRYTHMIA/SARCODOSIS, fx back History of Any Multi-Drug Resistant Organisms: None Reported Past Surgical History: Breast Surgery, Orthopedic Surgery, Tubal Ligation Additional Past Surgical History / Comment(s): BREAST BIOPSY X 3/RT WRIST/LT KNEE SURG, Broke back a couple years ago. 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 - Past Family History Father Family Medical History: Cancer Additional Family Medical History / Comment(s): heart issues, Prostate and Bone CA Mother Family Medical History: Diabetes Mellitus, Hypertension Additional Family Medical History / Comment(s): valve issues Medications and Allergies Home Medications Medication Instructions Recorded Confirmed Type Loperamide HCl [Imodium A-D] 1 - 2 mg PO DAILY 01/06/18 04/13/19 History Metoprolol Succinate [Toprol XL] 25 mg PO BID 01/06/18 04/13/19 History Acetaminophen/Diphenhydramine 2 tab PO HS 04/13/19 04/13/19 History [Tylenol Pm Ex-Strength Caplet] Apixaban [Eliquis] 5 mg PO BID 04/13/19 04/13/19 History Allergies Allergy/AdvReac Type Severity Reaction Status Date / Time codeine Allergy Anaphylaxis Verified 04/13/19 22:26 Physical Exam Vitals: Vital Signs Temp Pulse Pulse Resp BP BP Pulse Ox 04/13/19 22:24 97.8 F 69 18 158/78 96 04/13/19 21:00 65 18 168/82 96 04/13/19 15:31 97.5 F L 61 18 152/67 97 Intake and Output 04/13/19 04/13/19 04/13/19 06:59 14:59 22:59 Other: Weight 102.058 kg Constitutional: No acute distress, conversant, pleasant Eyes: Anicteric sclerae, moist conjunctiva, no lid-lag Pupils equal round reactive to light ENMT: NC/AT Oropharynx clear, no erythema, exudates Neck: Supple, FROM, no masses, or JVD No carotid bruits No thyromegaly Lungs: Clear to auscultation Clear to percussion Normal respiratory effort, no accessory muscle use Cardiovascular: Heart regular in rate and rhythm, No murmurs, gallops, or rubs No peripheral edema Abdominal: Soft Nontender, no guarding, rebound or rigidity Abdomen moving with respiration Normoactive bowel sounds No hepatomegaly, No splenomegaly No palpable mass No abdominal wall hernia noted Skin: Normal temperature, tone, texture, turgor No induration No subcutaneous nodules No rash, lesions No ulcers Extremities: No digital cyanosis No clubbing Pedal pulses intact and symmetrical Radial pulses intact and symmetrical No calf tenderness Psychiatric: Alert and oriented to person, place and time Appropriate affect fair judgement Neuro no point tenderness upon examination of the back, no skin changes over the back Straight leg raising is negative bilaterally Muscles Strength 5/5 in all 4 extremities Sensation to light touch grossly present throughout Cranial nerves II-XII grossly intact No focal sensory deficits Lymphatics: no palpable cervical or supraclavicular , or inguinal lymph nodes Assessment and Plan Assessment: 63 year old female with afib on eliquis. presented due to intractable back pain, she has had this problem for years, with occasional flare ups in pain. she has established OP follow up with ortho. however, her pain meds at home was not helping for the past 4 days. admitted for pain control and ortho eval. anticipated length of stay < 2 midnights Plan: intractable low back pain x-rays showed anterior wedging of L1, patient reports history of injury to her back from a fall while riding her horse many years ago Home by mouth pain medicines were not helping Pain control with opiates and Toradol Orthopedic evaluation Paroxysmal A. fib on Eliquis Resume metoprolol on Eliquis patient is full code Discussed with: Patient, ER, RN Anticipated length of stay lessthan [address]: home A total of 60 minutes was spent on the care of this complex patient more than 50% of the time was spent in counseling and care coordination.
[2019-04-14] MEDS: MORPHINE SULFATE 4 MG/ML SYRINGE IV PRN ×5 (00:44→18:44)
[2019-04-14 05:41] LABS: African American GFR (CKD) >90 (>60 ml/min/1.73 sqM); Anion Gap 10 mmol/L; Blood Urea Nitrogen 18 mg/dL (7-17); Calcium 9.2 mg/dL (8.4-10.2); Carbon Dioxide 22 mmol/L (22-30); Chloride 105 mmol/L (98-107); Glucose 154 mg/dL (74-99); Non-African American GFR(CKD) >90 (>60 ml/min/1.73 sqM); Potassium 4.7 mmol/L (3.5-5.1); Sodium 137 mmol/L (137-145)
[2019-04-14 05:42] LABS: Basophils % (A) 0 %; Eosinophils % (A) 0 %; HCT 37.9 % (34.0-46.0); HGB 12.4 gm/dL (11.4-16.0); Lymphocytes # (A) 0.9 k/uL (1.0-4.8); Lymphocytes % (A) 8 %; MCH 30.8 pg (25.0-35.0); MCHC 32.7 g/dL (31.0-37.0); MCV 94.3 fL (80.0-100.0); Mean Platelet Volume 7.5; Monocytes # (A) 0.3 k/uL (0-1.0); Monocytes % (A) 2 %; Neutrophils # (A) 10.3 k/uL (1.3-7.7); Neutrophils % (A) 89 %; Platelet Count 283 k/uL (150-450); RBC 4.02 m/uL (3.80-5.40); RDW 12.5 % (11.5-15.5); WBC 11.6 k/uL (3.8-10.6)
[2019-04-14] MEDS: APIXABAN 5 MG TAB PO SCH ×2 (06:38→19:56)
[2019-04-14] MEDS: PANTOPRAZOLE 40 MG TABLET PO SCH (06:38)
[2019-04-14] MEDS: METOPROLOL SUCCINATE (ER) 25 MG TAB.ER.24H PO SCH ×2 (06:38→19:55)
[2019-04-14] MEDS ORDERED: APIXABAN 5 MG TAB PO SCH (09:00)
[2019-04-14] MEDS ORDERED: methylPREDNISolone SOD SUCCI 125 MG/2 ML VIAL IV STA (09:30)
[2019-04-14] MEDS: traMADol 50 MG TAB PO PRN ×2 (12:02→18:49)
--- NOTE | 2019-04-14 14:46 | P.CNOR ---
History of Present Illness - [facility] Consult date: 04/14/19 Requesting physician: Michaela Neves Consult reason: low back pain (Acute on chronic low back pain) History of present illness: Patient is a 63-year-old female who is known to our practice. She is known have some chronic low back pain. She has intermittent flares of low back pain. Her symptoms have been well-controlled since last summer. She states last 04/09/2019, she began to experience increased low back pain. She states the pain radiates across the lower lumbar spine. She denies any injuries. Her symptoms continue to persist over the weekend. She presented to [facility] emergency department yesterday, 04/13/2019, for further evaluation. She was admitted for pain control. Since her admittance to the hospital she received 1 dose of Solu-Medrol. She has also been receiving narcotic pain medication. She states her symptoms have had improvement since that time. She is not sure she is quite ready to be discharged home. She denies any lower extremity weakness or radiculopathy bilaterally. She is known have a chronic L1 compression fracture deformity. She has a past medical history which includes atrial fibrillation and hypertension. Past Medical History Past Medical History: Atrial Fibrillation, Hypertension Additional Past Medical History / Comment(s): ARRYTHMIA/SARCODOSIS, fx back History of Any Multi-Drug Resistant Organisms: None Reported Past Surgical History: Breast Surgery, Orthopedic Surgery, Tubal Ligation Additional Past Surgical History / Comment(s): BREAST BIOPSY X 3/RT WRIST/LT KNEE SURG, Broke back a couple years ago. 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 - Past Family History Father Family Medical History: Cancer Additional Family Medical History / Comment(s): heart issues, Prostate and Bone CA Mother Family Medical History: Diabetes Mellitus, Hypertension Additional Family Medical History / Comment(s): valve issues Medications and Allergies Home Medications Medication Instructions Recorded Confirmed Type Loperamide HCl [Imodium A-D] 1 - 2 mg PO DAILY 01/06/18 04/13/19 History Metoprolol Succinate [Toprol XL] 25 mg PO BID 01/06/18 04/13/19 History Acetaminophen/Diphenhydramine 2 tab PO HS 04/13/19 04/13/19 History [Tylenol Pm Ex-Strength Caplet] Apixaban [Eliquis] 5 mg PO BID 04/13/19 04/13/19 History Allergies Allergy/AdvReac Type Severity Reaction Status Date / Time codeine Allergy Anaphylaxis Verified 04/13/19 22:26 Physical Examination Physical exam: Patient is awake, alert, and oriented 3 Vital signs stable Good chest excursion with deep inspiration and expiration Abdomen soft nontender Examination of lumbar spine reveals skin is intact with no abrasions, lacerations, or bruises; no erythema, purulence or signs of infection Pain with palpation along the lower lumbar spine at the lumbosacral junction No pain on palpation over the chronic L1 compression fracture site Dorsiflexion, plantarflexion, and extensor hallucis longus positive sustained bilaterally Lower extremity strength 5/5 bilaterally Patellar reflex 2+ bilaterally No lower extremity hyperreflexia bilaterally Negative Lasegue's test bilaterally No signs or symptoms of DVT; no calf pain No pain with internal and external rotation of the hips bilaterally Neurovascularly intact Results Pertinent studies: X-rays the lumbar spine taken on 04/13/2019: Chronic L1 compression fracture deformity with approximately 20% anterior wedging: L5-S1 degenerative disc disease; no evidence of acute vertebral body compression fracture - Labs Labs: Abnormal Lab Results - Last 24 Hours (Table) 04/14/19 04/14/19 Range/Units 05:12 05:15 WBC 11.6 H (3.8-10.6) k/uL Neutrophils # 10.3 H (1.3-7.7) k/uL Lymphocytes # 0.9 L (1.0-4.8) k/uL BUN 18 H (7-17) mg/dL Glucose 154 H (74-99) mg/dL H & H 04/14/19 Range/Units 05:12 Hgb 12.4 (11.4-16.0) gm/dL Hct 37.9 (34.0-46.0) % Result Diagrams: 04/14/19 05:12 04/14/19 05:15 Assessment and Plan Assessment: Assessment: Chronic L1 compression fracture deformity Intractable low back pain L5-S1 degenerative disc disease Lumbar muscle spasm (1) Wedge compression fracture of L1 vertebra Current Visit: Yes Status: Acute Code(s): S32.010A - WEDGE COMPRESSION FRACTURE OF FIRST LUMBAR VERTEBRA, INIT SNOMED Code(s): 121511240 (2) History of atrial fibrillation Current Visit: Yes Status: Acute Code(s): Z86.79 - PERSONAL HISTORY OF OTHER DISEASES OF THE CIRCULATORY SYSTEM SNOMED Code(s): 438151520 (3) History of hypertension Current Visit: Yes Status: Acute Code(s): Z86.79 - PERSONAL HISTORY OF OTHER DISEASES OF THE CIRCULATORY SYSTEM SNOMED Code(s): 686205836 (4) Intractable low back pain Current Visit: Yes Status: Acute Code(s): M54.5 - LOW BACK PAIN SNOMED Code(s): 15380994697614634 (5) Degenerative disc disease at L5-S1 level Current Visit: No Status: Acute Code(s): M51.36 - OTHER INTERVERTEBRAL DISC DEGENERATION, LUMBAR REGION SNOMED Code(s): 72267358 (6) Lumbar paraspinal muscle spasm Current Visit: No Status: Acute Code(s): M62.830 - MUSCLE SPASM OF BACK SNOMED Code(s): 92854328481750767 Plan: Plan: 1. After further discussion with the patient, reviewing of imaging, and physical examination the patient, we will plan to continue conservative treatment at this time. Reviewing of imaging does show evidence of chronic L1 compression fracture deformity. She is not experiencing any pain at this fract ure site. She has had an exacerbation of chronic low back pain without injury. Her symptoms have had some improvement since her admittance to the hospital but continue to be present. She received 1 dose of Solu-Medrol along with narcotic pain medication. If she continues to improve, she would like to be discharged home today. We'll plan to prescribe one more dose of Solu-Medrol 80 mg IV. If the patient is able to improve, she is clear for discharge from an orthopedic spine standpoint. Following discharge patient states she would like to follow- up with Dr. Villatoro in pain management in the outpatient setting to discuss further treatment options. It was recommended for referral to him previously. Patient was also previously prescribed medications in the outpatient setting. We'll plan to prescribe these medications. Prescriptions will be written for 12 day 10 mg prednisone taper, Flexeril 10 mg 1 tablet every 8 hours as needed for muscle spasm, dispensed #60, and Ultram 50 mg 1-2 tabs every 6 hours as needed for pain, dispensed #60. These medications have been sent to the patient's pharmacy. Time with Patient: Greater than 30 (Including obtaining history, physical examination, reviewing of imaging, and dictation.)
--- NOTE | 2019-04-14 15:32 | P.PN ---
Subjective Progress Note Date: 04/14/19 Patient pain was slightly better controlled earlier today but now again her pain is not well controlled. She was evaluated by the orthopedics who has been prescribing her pain management for compression fracture of the spine as an outpatient and they recommended that if patient pain is improved and medically okay to discharge the patient later today. Just had conversation with patient's nurse who stated that patient pain is back and despite of IV steroids and IV morphine and tramadol her pain is not well controlled. Patient Toradol which she has been getting when necessary since last night was discontinued because of its effects on kidney. Earlier today patient was able to walk to the bathroom and back to her bed without any difficulty but as reported by the nurse now patient is having pain while at rest also. Patient denies chest pain, palpitation, headache, dizziness, fever, chills and denies rest of the review system. Objective - Vital Signs Vital signs: Vital Signs Temp 97.9 F 04/14/19 06:12 Pulse 65 04/14/19 06:12 Resp 18 04/14/19 06:12 BP 150/75 04/14/19 06:12 Pulse Ox 95 04/14/19 06:12 Intake & Output 04/13/19 04/14/19 04/14/19 18:59 06:59 18:59 Intake Total 1200 Balance 1200 Weight 102.058 kg Intake: Intake, IV Titration 480 Amount Sodium Chloride 0.9% 1, 480 000 ml @ 60 mls/hr IV . [id number] Rx#:[id number] Oral 720 Other: # Voids 2 2 - Constitutional General appearance: Present: cooperative, no acute distress - EENT Eyes: Present: EOMI, normal appearance ENT: Present: hearing grossly normal, NA/AT - Respiratory Respiratory: bilateral: CTA, negative: diminished, dullness, rales, rhonchi, wheezing - Cardiovascular Rhythm: regular Heart sounds: normal: S1, S2 Abnormal Heart Sounds: Absent: systolic murmur, diastolic murmur, S3 Gallop, S4 Gallop - Gastrointestinal General gastrointestinal: Present: hepatomegaly, normal bowel sounds, soft. Absent: distended, rigid, tenderness - Neurologic Neurologic: Present: CNII-XII intact. Absent: focal deficits - Psychiatric Psychiatric: Present: A&O x's 3, appropriate affect - Allied health notes Allied health notes reviewed: nursing - Labs CBC & Chem 7: 04/14/19 05:12 04/14/19 05:15 Labs: Abnormal Lab Results - Last 24 Hours (Table) 04/14/19 04/14/19 Range/Units 05:12 05:15 WBC 11.6 H (3.8-10.6) k/uL Neutrophils # 10.3 H (1.3-7.7) k/uL Lymphocytes # 0.9 L (1.0-4.8) k/uL BUN 18 H (7-17) mg/dL Glucose 154 H (74-99) mg/dL Assessment and Plan Plan: Assessment/Plan: 63 year old female with afib on eliquis. presented due to intractable back pain, she has had this problem for years, with occasional flare ups in pain. she has established OP follow up with ortho. however, her pain meds at home was not helping for the past 4 days. admitted for pain control and ortho eval. anticipated length of stay < 2 midnights intractable low back pain x-rays showed anterior wedging of L1, patient reports history of injury to her back from a fall while riding her horse many years ago Home by mouth pain medicines were not helping Pain control with opiates and Tramadol, Toradol d/c'd due to risk of side e ffects. Orthopedic evaluation and recs appreciated. Paroxysmal A. fib on Eliquis Resume metoprolol on Eliquis Pt. was initially okayed for d/c by ORTHO but later on her D/C was held due to her intractable back pain. Will monitor her for one more day and wait for the ORTHO recs. Time with Patient: Less than 30
[2019-04-14] MEDS: SODIUM CHLORIDE 0.9% 1,000 ML IV SCH (16:14)
[2019-04-15] MEDS: KETOROLAC 30 MG/ML 1 ML VIAL IVP SCH ×2 (00:10→00:11)
[2019-04-15] MEDS: traMADol 50 MG TAB PO PRN ×2 (00:13→05:30)
[2019-04-15] MEDS: MORPHINE SULFATE 4 MG/ML SYRINGE IV PRN ×3 (00:14→09:41)
[2019-04-15] MEDS: SODIUM CHLORIDE 0.9% 1,000 ML IV SCH (03:45)
[2019-04-15 07:39] VITALS: BP 153/85; PULSE 57; TEMP 98.6
--- NOTE | 2019-04-15 08:41 | P.PN ---
Progress Note - Text Progress Note Date: 04/15/19 Orthopedic Spine: History of Present Illness: Patient is a 63-year-old female who is known to our practice who is seen and examined at the bedside for follow-up evaluation in regards to her lumbar spine. She is known have some chronic low back pain. She has intermittent flares of low back pain. Her symptoms have been well-controlled since last summer. She states last 04/09/2019, she began to experience increased low back p ain. She states the pain radiates across the lower lumbar spine. She denies any injuries. Her symptoms continue to persist over the weekend. She presented to [facility] emergency department on 04/13/2019 for further evaluation. She was admitted for pain control. Since being seen and examined yesterday, she was given another dose of Solu-Medrol. She continues to receive narcotic pain medication. Since last evening she has had improvement of her symptoms overall. She feels she is ready for discharge home today. She denies any lower extremity weakness or radiculopathy bilaterally. She is known have a chronic L1 compression fracture deformity. She has a past medical history which includes atrial fibrillation and hypertension. An appointment has artery been set up with Dr. Villatoro for outpatient evaluation with pain management. A referral will be set up by her primary care provider. Physical exam: Patient is awake, alert, and oriented 3 Vital signs stable Good chest excursion with deep inspiration and expiration Abdomen soft nontender Examination of lumbar spine reveals skin is intact with no abrasions, lacerations, or bruises; no erythema, purulence or signs of infection Pain with palpation along the lower lumbar spine at the lumbosacral junction No pain on palpation over the chronic L1 compression fracture site Dorsiflexion, plantarflexion, and extensor hallucis longus positive sustained bilaterally Lower extremity strength 5/5 bilaterally Patellar reflex 2+ bilaterally No lower extremity hyperreflexia bilaterally Negative Lasegue's test bilaterally No signs or symptoms of DVT; no calf pain No pain with internal and external rotation of the hips bilaterally Neurovascularly intact Pertinent studies: X-rays the lumbar spine taken on 04/13/2019: Chronic L1 compression fracture deformity with approximately 20% anterior wedging: L5-S1 degenerative disc disease; no evidence of acute vertebral body compression fracture Assessment: Chronic L1 compression fracture deformity Intractable low back pain L5-S1 degenerative disc disease Lumbar muscle spasm Plan: 1. We will continue with the plan as previously set forth. After further discussion with the patient, reviewing of imaging, and physical examination the patient, we will plan to continue conservative treatment at this time. Reviewing of imaging does show evidence of chronic L1 compression fracture deformity. She is not experiencing any pain at this fracture site. She has had an exacerbation of chronic low back pain without injury. Her symptoms have continued to have some improvement since her admittance and after following 2 doses of Solu-Medrol. At this time she does feel she would be ready for discharge home today. We discussed patient is cleared for discharge from an orthopedic spine standpoint. Following discharge patient states she would like to follow-up with Dr. Villatoro in pain management in the outpatient setting to discuss further treatment options. A follow-up appointment has artery been set. A referral will be ordered by her primary care provider as required by her insurance. Patient was also previously prescribed medications in the outpatient setting. We will prescribe medications in the outpatient setting. Prescriptions have been written for 12 day 10 mg prednisone taper, Flexeril 10 mg 1 tablet every 8 hours as needed for muscle spasm, dispensed #60, and Ultram 50 mg 1-2 tabs every 6 hours as needed for pain, dispensed #60. These medications have been sent to the patient's pharmacy.
[2019-04-15] MEDS ORDERED: INFLUENZA VACCINE (6 MOS+) 60 MCG/0.5 ML SYRINGE IM ONE (09:24)
[2019-04-15] MEDS: APIXABAN 5 MG TAB PO SCH (09:41)
[2019-04-15] MEDS: METOPROLOL SUCCINATE (ER) 25 MG TAB.ER.24H PO SCH (09:41)
[2019-04-15] MEDS: PANTOPRAZOLE 40 MG TABLET PO SCH (09:41)
--- NOTE | 2019-04-15 09:56 | P.DS ---
Providers Date of admission: 04/13/19 21:51 Expected date of discharge: 04/15/19 Attending physician: Gem Encinas MD Consults: 04/13/19 20:32 Consult Physician Stat Consulting Provider: Rosenda Henson Consult Reason/Comments: Intractable back pain Do you want consulting provider notified?: Yes, Notify in am Primary care physician: Jodee [facility] Course: S:- 63 year old female with afib on eliquis. presented due to intractable back pain, she has had this problem for years, with occasional flare ups in pain. she has established OP follow up with ortho. however, her pain meds at home was not helping for the past 4 days. admitted for pain control and ortho eval. patient reports that her pain is better controlled today and she is able to walk and her spasms are well controlled. Patient was seen by the orthopedic spine surgeon and chronic back pain prescriptions were sent to the pharmacy and patient was advised to follow with pain management clinic as an outpatient. O:-Vital signs stable patient afebrile, lungs clear, heart regular, abdomen soft, bowel sound positive, nontender/nondistended abdomen and peripheral pulses are positive no lower extremity edema noted. Patient continues to have paraspinal muscle soreness in paralumbar area. A/P:- intractable low back pain x-rays showed anterior wedging of L1, patient reports history of injury to her back from a fall while riding her horse many years ago, Home by mouth pain medicines were not helping. Pain control with opiates and Tramadol, Toradol d/c'd due to risk of side effects. Muscle relaxer prescribed as per ORTHO. Pt. tp follow up with her PCP and pain management clinic post discharge. Patient will also be prescribed low-dose oral Protonix, prescriptions sent via E- prescrib. Paroxysmal A. fib on Eliquis, continue at discharge. Assessment: See above. Pertinent Studies: X-ray lumbar spine 3 views were done and reported as mild anterior wedging of L1 is slightly poor the last exam. No acute fracture. Mild spondylotic changes. Procedures: None. Patient Condition at Discharge: Good Plan - Discharge Summary Discharge Rx Participant: Yes New Discharge Prescriptions: New Pantoprazole [Protonix] 20 mg PO [id number] 30 Days #30 tablet. Continue Metoprolol Succinate [Toprol XL] 25 mg PO BID Loperamide HCl [Imodium A-D] 1 - 2 mg PO DAILY Apixaban [Eliquis] 5 mg PO BID Acetaminophen/Diphenhydramine [Tylenol Pm Ex-Strength Caplet] 2 tab PO HS Discharge Medication List Loperamide HCl [Imodium A-D] 1 - 2 mg PO DAILY 01/06/18 [History] Metoprolol Succinate [Toprol XL] 25 mg PO BID 01/06/18 [History] Acetaminophen/Diphenhydramine [Tylenol Pm Ex-Strength Caplet] 2 tab PO HS 04/13/19 [History] Apixaban [Eliquis] 5 mg PO BID 04/13/19 [History] Pantoprazole [Protonix] 20 mg PO TANNA-ARGELIA 30 Days #30 tablet. 04/15/19 [Rx] Follow up Appointment(s)/Referral(s): Jodee Ramachandran MD [Primary Care Provider] - 1-2 days Efrem Villatoro MD [STAFF PHYSICIAN] - 04/16/19 10:45 am Discharge Disposition: HOME SELF-CARE
== END 2019-04-15 10:48 | disposition home or self-care (01) ==
LOC: EC 15:21 → 1SOBS 21:51
PROVIDERS: ADMIT Internal Medicine; ATTEND Internal Medicine
DX: M54.5 Low back pain (principal); G89.29 Other chronic pain; M51.37 Other intervertebral disc degeneration, lumbosacral region; I48.0 Paroxysmal atrial fibrillation; I10 Essential (primary) hypertension; D86.9 Sarcoidosis, unspecified; M62.830 Muscle spasm of back; S32.010S Wedge compression fracture of first lumbar vertebra, sequela; V80.010S Animal-rider injured by fall from or being thrown from horse in noncollision accident, sequela; Z23 Encounter for immunization; Z79.891 Long term (current) use of opiate analgesic; Z79.01 Long term (current) use of anticoagulants; Z79.899 Other long term (current) drug therapy; Z88.5 Allergy status to narcotic agent; Z87.81 Personal history of (healed) traumatic fracture; Z87.828 Personal history of other (healed) physical injury and trauma; Z98.51 Tubal ligation status; Z87.891 Personal history of nicotine dependence; Z83.3 Family history of diabetes mellitus; Z82.49 Family history of ischemic heart disease and other diseases of the circulatory system; Z80.42 Family history of malignant neoplasm of prostate; Z80.8 Family history of malignant neoplasm of other organs or systems
CPT/HCPCS: 96376 ×3; 96361; 96374; 96375; 99284; 80048; 85025; 72100; 90686; G0378 ×3; G0008; J2270 ×3; J2930 ×2; J2405; J1885 ×2

== ENCOUNTER → 2019-04-29 | Outpatient (CLI) | payer BC ==
--- NOTE | 2019-04-29 14:40 | US ---
EXAMINATION TYPE: US carotid duplex BILAT DATE OF EXAM: 04/29/2019 COMPARISON: NONE CLINICAL HISTORY: R09.89 Other specified symptoms and signs involvin. Left carotid bruit EXAM MEASUREMENTS: RIGHT: Peak Systolic Velocity (PSV) cm/sec ----- Right CCA: 98.5 ----- Right ICA: 111.7 ----- Right ECA: 110.6 ICA/CCA ratio: 1.1 RIGHT: End Diastole cm/sec ----- Right CCA: 27.0 ----- Right ICA: 40.2 ----- Right ECA: 14.9 LEFT: Peak Systolic Velocity (PSV) cm/sec ----- Left CCA: 106.6 ----- Left ICA: 110.6 ----- Left ECA: 112.1 ICA/CCA ratio: 1.0 LEFT: End Diastole cm/sec ----- Left CCA: 29.9 ----- Left ICA: 38.0 ----- Left ECA: 17.6 VERTEBRALS (direction of flow): Right Vertebral: Antegrade Left Vertebral: Antegrade Rhythm: Normal Mild plaque bilateral bifurcations. No evidence of increased velocities. No evidence of significant s tenosis IMPRESSION: 1. Mild plaque bilaterally with no significant hemodynamic stenosis as visualized. Criteria for Assigning % of Stenosis / Diameter reduction (Estimation based on the indirect measurements of the internal carotid artery velocities (ICA PSV). 1. Normal (no stenosis)=ICA PSV < 125 cm/s: ratio < 2.0: ICA EDV<40 cm/s. 2. Less than 50% stenosis=ICA PSV < 125 cm/s: ratio < 2.0: ICA EDV<40 cm/s. 3. 50 to 69% stenosis=ICA PSV of 125 to 230 cm/s: ration 2.0 ? 4.0: ICA EDV 40-100 cm/s. 4. Greater than 70% stenosis to near occlusion= ICA PSV > 230 cm/s: ratio > 4.0: ICA EDV > 100 cm/s. 5. Near occlusion= ICA PSV velocities may be low or undetectable: variable ratio and ICA EDV. 6. Total occlusion=unable to detect flow.
== END ==
LOC: RADUSWWP 12:53
PROVIDERS: ATTEND Internal Medicine Cardiovascular Disease
DX: I65.23 Occlusion and stenosis of bilateral carotid arteries (principal)
CPT/HCPCS: 93880

== ENCOUNTER → 2020-02-02 | Outpatient (CLI) | payer BC | END | disposition home or self-care (01) | LOC: LABWHC1 12:32 | PROVIDERS: ATTEND Family Medicine | DX: Z03.818 Encounter for observation for suspected exposure to other biological agents ruled out (principal) | CPT/HCPCS: U0003; C9803 ==

== ENCOUNTER → 2020-02-20 | Outpatient (CLI) | payer BC ==
[2020-02-20 17:31] LABS: Anion Gap 7.5 mmol/L (4.00-12.00); BUN/Creat Ratio 23.75 Ratio (12.00-20.00); Calcium 9.5 mg/dL (8.7-10.3); Carbon Dioxide 24.5 mmol/L (21.6-31.8); Chol/HDL Ratio 3.96; Non-African American GFR(CKD) 76.8 (60.0-200.0); Potassium 4.7 mmol/L (3.5-5.5)
== END | disposition home or self-care (01) ==
LOC: LABWHC1 09:31
PROVIDERS: ATTEND Internal Medicine Cardiovascular Disease
DX: I10 Essential (primary) hypertension (principal); E78.5 Hyperlipidemia, unspecified
CPT/HCPCS: 36415; 80048; 80061

== ENCOUNTER 2020-07-22 20:28 | Emergency (ER) | payer BC ==
[2020-07-22 20:32] VITALS: RESP 18
[2020-07-22] MEDS ORDERED: hydrALAZINE HCL 20 MG/ML 1 ML VIAL IVP STA (20:51)
--- NOTE | 2020-07-22 20:58 | ED ---
General Adult HPI - General Chief complaint: Recheck/Abnormal Lab/Rx Stated complaint: High blood pressure Time Seen by Provider: 07/22/20 20:38 Source: patient, family, RN notes reviewed Mode of arrival: ambulatory Limitations: no limitations - History of Present Illness Initial comments: Patient is a pleasant 65-year-old female presenting to the emergency department with concerns for high blood pressure. Patient states her blood pressure was a little bit high at her doctor's office today and then checked it several times after that. Blood pressure was as high as 193/93. Patient complains of mild headache. Patient states it is not severe. No confusion. No weakness. No chest pain or dyspnea. Patient does have history of hypertension. Patient is on metoprolol 25 mg in the morning and 50 in the evening. Patient was previously and 50 twice a day however she did not tolerate that well secondary to low heart rate and fatigue. - Related Data Home Medications Medication Instructions Recorded Confirmed Loperamide HCl [Imodium A-D] 1 - 2 mg PO DAILY 01/06/18 04/13/19 Metoprolol Succinate [Toprol XL] 25 mg PO BID 01/06/18 04/13/19 Acetaminophen/Diphenhydramine 2 tab PO HS 04/13/19 04/13/19 [Tylenol Pm Ex-Strength Caplet] Apixaban [Eliquis] 5 mg PO BID 04/13/19 04/13/19 Previous Rx's Medication Instructions Recorded Pantoprazole [Protonix] 20 mg PO AC-BRKFST 30 Days #30 04/15/19 tablet. Allergies Allergy/AdvReac Type Severity Reaction Status Date / Time codeine Allergy Anaphylaxis Verified 07/22/20 20:31 Review of Systems ROS Statement: Those systems with pertinent positive or pertinent negative responses have been documented in the HPI. ROS Other: All systems not noted in ROS Statement are negative. Constitutional: Denies: fever Eyes: Denies: eye pain ENT: Denies: ear pain Respiratory: Denies: cough, dyspnea Cardiovascular: Denies: chest pain, palpitations Endocrine: Denies: fatigue Gastrointestinal: Denies: abdominal pain Genitourinary: Denies: dysuria Musculoskeletal: Denies: back pain Skin: Denies: rash Neurological: Reports: headache (Mild head). Denies: weakness, numbness, paresthesias, confusion Past Medical History Past Medical History: Atrial Fibrillation, Hypertension Additional Past Medical History / Comment(s): ARRYTHMIA/SARCODOSIS, fx back History of Any Multi-Drug Resistant Organisms: None Reported Past Surgical History: Breast Surgery, Orthopedic Surgery, Tubal Ligation Additional Past Surgical History / Comment(s): BREAST BIOPSY X 3/RT WRIST/LT KNEE SURG, Broke back a couple years ago. Past Anesthesia/Blood Transfusion Reactions: No Reported Reaction Past Psychological History: No Psychological Hx Reported Past Alcohol Use History: None Reported Past Drug Use History: None Reported - Past Family History Father Family Medical History: Cancer Additional Family Medical History / Comment(s): heart issues, Prostate and Bone CA Mother Family Medical History: Diabetes Mellitus, Hypertension Additional Family Medical History / Comment(s): valve issues General Exam Limitations: no limitations General appearance: alert, in no apparent distress Head exam: Present: atraumatic, normocephalic Eye exam: Present: normal appearance, PERRL, EOMI. Absent: nystagmus ENT exam: Present: normal oropharynx Neck exam: Present: normal inspection Respiratory exam: Present: normal lung sounds bilaterally Cardiovascular Exam: Present: regular rate, normal rhythm Expanded Peripheral pulses: 2+: Radial (R), Radial (L), Dorsalis Pedis (R), Dorsalis Pedis (L) GI/Abdominal exam: Present: soft. Absent: tenderness Extremities exam: Present: normal inspection. Absent: pedal edema, calf tenderness Neurological exam: Present: alert, oriented X3, CN II-XII intact. Absent: motor sensory deficit Expanded Neurological exam: Present: protecting the airway Speech: Present: fluid speech Cranial nerves: EOM's Intact: Normal Motor strength exam: RUE: 5, LUE: 5, RLE: 5, LLE: 5 Eye Response: (4) open spontaneously Motor Response: (6) obeys commands Verbal Response: (5) oriented Psychiatric exam: Present: normal affect, normal mood Skin exam: Present: normal color Course Vital Signs 07/22/20 07/22/20 20:29 20:57 Temperature 97.6 F Pulse Rate 80 54 L Respiratory 18 18 Rate Blood Pressure 178/83 154/76 O2 Sat by Pulse 98 97 Oximetry - Reevaluation(s) Reevaluation #1: 07/22/20 20:56 Patient states headache is only mild and does not want a head CT. EKG Findings - EKG Comments: EKG Findings:: 6. Cardiac 5. IN 170. QRS 90. QT 426. QTc 407. Normal axis. Normal QRS. No acute ST change. Medical Decision Making - Medical Decision Making Patient reevaluated and resting comfortably in bed, symptom-free. Blood pressure 147/73. Patient has not taken her evening medications yet. Patient and family updated on results and need for follow-up. Patient will take her medication when she gets home. - Lab Data Result diagrams: 07/22/20 Unknown 07/22/20 Unknown Lab Results 07/22/20 07/22/20 Range/Units Unknown Unknown WBC 8.7 (3.8-10.6) k/uL RBC 4.45 (3.80-5.40) m/uL Hgb 13.5 (11.4-16.0) gm/dL Hct 41.2 (34.0-46.0) % MCV 92.8 (80.0-100.0) fL MCH 30.4 (25.0-35.0) pg MCHC 32.7 (31.0-37.0) g/dL RDW 12.6 (11.5-15.5) % Plt Count 275 (150-450) k/uL MPV 8.0 Neutrophils % 55 % Lymphocytes % 35 % Monocytes % 5 % Eosinophils % 2 % Basophils % 1 % Neutrophils # 4.8 (1.3-7.7) k/uL Lymphocytes # 3.0 (1.0-4.8) k/uL Monocytes # 0.5 (0-1.0) k/uL Eosinophils # 0.2 (0-0.7) k/uL Basophils # 0.1 (0-0.2) k/uL Sodium 138 (137-145) mmol/L Potassium 4.2 (3.5-5.1) mmol/L Chloride 105 (98-107) mmol/L Carbon Dioxide 26 (22-30) mmol/L Anion Gap 7 mmol/L BUN 17 (7-17) mg/dL Creatinine 0.84 (0.52-1.04) mg/dL Est GFR (CKD-EPI)AfAm 83 (>60 ml/min/1.73 sqM) Est GFR (CKD-EPI)NonAf 72 (>60 ml/min/1.73 sqM) Glucose 102 H (74-99) mg/dL Calcium 9.2 (8.4-10.2) mg/dL Total Bilirubin 0.5 (0.2-1.3) mg/dL AST 30 (14-36) U/L ALT 22 (4-34) U/L Alkaline Phosphatase 75 (38-126) U/L Total Protein 7.3 (6.3-8.2) g/dL Albumin 4.2 (3.5-5.0) g/dL Disposition Clinical Impression: Hypertension Disposition: HOME SELF-CARE Condition: Stable Instructions (If sedation given, give patient instructions): Hypertension (ED) Additional Instructions: Please follow-up with primary care physician in the next day or 2 for recheck. Return for increased blood pressure, headache, weakness or confusion, chest pain, worsening symptoms or other concerns. Is patient prescribed a controlled substance at d/c from ED?: No Referrals: Jodee Ramachandran MD [Primary Care Provider] - 1-2 days Time of Disposition: 21:29
[2020-07-22 21:10] LABS: Basophils # (A) 0.1 k/uL (0-0.2); Basophils % (A) 1 %; Eosinophils # (A) 0.2 k/uL (0-0.7); Eosinophils % (A) 2 %; HCT 41.2 % (34.0-46.0); HGB 13.5 gm/dL (11.4-16.0); Lymphocytes % (A) 35 %; MCH 30.4 pg (25.0-35.0); MCHC 32.7 g/dL (31.0-37.0); MCV 92.8 fL (80.0-100.0); Monocytes # (A) 0.5 k/uL (0-1.0); Monocytes % (A) 5 %; Neutrophils # (A) 4.8 k/uL (1.3-7.7); Neutrophils % (A) 55 %; Platelet Count 275 k/uL (150-450); RBC 4.45 m/uL (3.80-5.40); RDW 12.6 % (11.5-15.5); WBC 8.7 k/uL (3.8-10.6)
[2020-07-22 21:21] LABS: Albumin 4.2 g/dL (3.5-5.0); Calcium 9.2 mg/dL (8.4-10.2); Potassium 4.2 mmol/L (3.5-5.1); Total Bilirubin 0.5 mg/dL (0.2-1.3); Total Protein 7.3 g/dL (6.3-8.2)
[2020-07-22 22:05] VITALS: BP 148/72; PULSE 54; TEMP 98
== END 2020-07-22 22:06 | disposition home or self-care (01) ==
LOC: EC 20:28
DX: I10 Essential (primary) hypertension (principal); I48.91 Unspecified atrial fibrillation; Z79.01 Long term (current) use of anticoagulants; Z79.899 Other long term (current) drug therapy; Z88.5 Allergy status to narcotic agent
CPT/HCPCS: 36415; 80053; 85025; 93005; 99284

== ENCOUNTER → 2020-10-07 | Outpatient (CLI) | payer BC ==
--- NOTE | 2020-10-08 08:50 | US ---
EXAMINATION TYPE: US pelvis complete transvag DATE OF EXAM: 10/07/2020 COMPARISON: NONE CLINICAL HISTORY: 65-year-old female R10.2 pelvic pain. Pressure TECHNIQUE: Transvaginal (TV) and Transabdominal (TA) . Transabdominal sonographic images of the pel vis were acquired. Transvaginal sonographic images were medically necessary to better assess the fol lowing anatomy: Ovaries FINDINGS: EXAM MEASUREMENTS: Uterus: 6.1 x 2.0 x 3.8 cm Endometrial Stripe: .4 cm 1. Uterus: Anteverted and otherwise wnl. Incidental cervical nabothian cyst measuring 5 mm. 2. Endometrium: wnl 3. Right Ovary: Obscured by overlying bowel gas 4. Left Ovary: Obscured by overlying bowel gas 5. Bilateral Adnexa: wnl 6. Posterior cul-de-sac: wnl IMPRESSION: Neither ovary could be visualized. No evidence adnexal abnormality. No pelvic free fluid. Endometrial stripe measures 4 mm.
== END | disposition home or self-care (01) ==
LOC: RADUSWWP 16:12
PROVIDERS: ATTEND Family Medicine
DX: R10.2 Pelvic and perineal pain (principal)
CPT/HCPCS: 76830; 76856

== ENCOUNTER 2020-10-11 18:49 | Inpatient (IN) | payer BC, MEDICARE ==
--- NOTE | 2020-10-11 20:15 | XR ---
EXAMINATION TYPE: XR chest 2V DATE OF EXAM: 10/11/2020 COMPARISON: 09/05/2015 HISTORY: Short of breath TECHNIQUE: FINDINGS: Heart is normal. Lungs are clear of consolidation. There are no hilar masses. Costophrenic angles are clear. The bony thorax is intact. IMPRESSION: No active cardiopulmonary disease. Normal heart. No adverse change.
[2020-10-11] MEDS ORDERED: ONDANSETRON 4 MG/2 ML VIAL IVP STA (20:25)
[2020-10-11 20:46] LABS: Basophils % (A) 0 %; Eosinophils # (A) 0.4 k/uL (0-0.7); Eosinophils % (A) 3 %; HCT 43.8 % (34.0-46.0); HGB 14.9 gm/dL (11.4-16.0); Lymphocytes # (A) 0.6 k/uL (1.0-4.8); Lymphocytes % (A) 5 %; MCH 31.5 pg (25.0-35.0); MCHC 33.9 g/dL (31.0-37.0); MCV 92.8 fL (80.0-100.0); Mean Platelet Volume 8.7; Monocytes # (A) 0.5 k/uL (0-1.0); Monocytes % (A) 4 %; Neutrophils # (A) 11.8 k/uL (1.3-7.7); Neutrophils % (A) 88 %; Platelet Count 193 k/uL (150-450); RBC 4.72 m/uL (3.80-5.40); RDW 12.6 % (11.5-15.5); WBC 13.4 k/uL (3.8-10.6)
[2020-10-11 20:55] LABS: ALT 17 U/L (4-34); AST 33 U/L (14-36); African American GFR (CKD) >90 (>60 ml/min/1.73 sqM); Albumin 5.1 g/dL (3.5-5.0); Alkaline Phosphatase 88 U/L (38-126); Anion Gap 11 mmol/L; Blood Urea Nitrogen 15 mg/dL (7-17); Calcium 9.7 mg/dL (8.4-10.2); Carbon Dioxide 26 mmol/L (22-30); Chloride 102 mmol/L (98-107); Glucose 116 mg/dL (74-99); Non-African American GFR(CKD) 80 (>60 ml/min/1.73 sqM); Potassium 5.1 mmol/L (3.5-5.1); Sodium 139 mmol/L (137-145); Total Bilirubin 0.9 mg/dL (0.2-1.3); Total Protein 8.7 g/dL (6.3-8.2)
[2020-10-11] MEDS ORDERED: KETOROLAC 15 MG/ML 1 ML VIAL IVP STA (21:26)
[2020-10-11 21:40] LABS: Partial Thromboplastin Time 25.6 sec (22.0-30.0); Prothrombin Time 10.6 sec (9.0-12.0)
--- NOTE | 2020-10-11 21:43 | ED ---
General Adult HPI - General Chief complaint: Shortness of Breath Stated complaint: SOB, dizziness Time Seen by Provider: 10/11/20 20:14 Source: patient Mode of arrival: wheelchair Limitations: no limitations - History of Present Illness Initial comments: 65 year-old male patient presents to the emergency department for evaluation of chest pain, shortness of breath, and nausea that started today. States that she has had some intermittent dizziness as well. Patient states she has been feeling unwell. Denies any cough or congestion. States she has been treated for UTI. Has history of afib, hypertension, and sarcoidosis in remission. Denies any fever b ut states she has been chilled. Patient denies any recent rash, fever, chills, cough, abdominal pain, vomiting, diarrhea, constipation, back pain, numbness, tingling, hematuria, dysuria, urinary urgency, urinary frequency, headache, visual changes, or any other complaints. - Related Data Home Medications Medication Instructions Recorded Confirmed Loperamide HCl [Imodium A-D] 1 - 2 mg PO DAILY 01/06/18 04/13/19 Metoprolol Succinate [Toprol XL] 25 mg PO BID 01/06/18 04/13/19 Acetaminophen/Diphenhydramine 2 tab PO HS 04/13/19 04/13/19 [Tylenol Pm Ex-Strength Caplet] Apixaban [Eliquis] 5 mg PO BID 04/13/19 04/13/19 Previous Rx's Medication Instructions Recorded Pantoprazole [Protonix] 20 mg PO AC-BRKFST 30 Days #30 04/15/19 tablet. Allergies Allergy/AdvReac Type Severity Reaction Status Date / Time codeine Allergy Anaphylaxis Verified 10/11/20 18:55 Review of Systems ROS Statement: Those systems with pertinent positive or pertinent negative responses have been documented in the HPI. ROS Other: All systems not noted in ROS Statement are negative. Past Medical History Past Medical History: Atrial Fibrillation, Hypertension Additional Past Medical History / Comment(s): ARRYTHMIA/SARCODOSIS, fx back History of Any Multi-Drug Resistant Organisms: None Reported Past Surgical History: Breast Surgery, Orthopedic Surgery, Tubal Ligation Additional Past Surgical History / Comment(s): BREAST BIOPSY X 3/RT WRIST/LT KNEE SURG, Broke back a couple years ago. Past Anesthesia/Blood Transfusion Reactions: No Reported Reaction Past Psychological History: No Psychological Hx Reported Smoking Status: Never smoker Past Alcohol Use History: None Reported Past Drug Use History: None Reported - Past Family History Father Family Medical History: Cancer Additional Family Medical History / Comment(s): heart issues, Prostate and Bone CA Mother Family Medical History: Diabetes Mellitus, Hypertension Additional Family Medical History / Comment(s): valve issues General Exam Limitations: no limitations General appearance: alert, in no apparent distress, other (This is a well- developed, well-nourished adult female patient in no acute distress. Vital signs upon presentation are temperature 98.0F, pulse 75, respirations 22, blood pressure 123/72, pulse ox 95% on room air.) Eye exam: Present: normal appearance, PERRL, EOMI. Absent: scleral icterus, conjunctival injection, periorbital swelling ENT exam: Present: normal exam, normal oropharynx, mucous membranes moist Respiratory exam: Present: normal lung sounds bilaterally. Absent: respiratory distress, wheezes, rales, rhonchi, stridor Cardiovascular Exam: Present: regular rate, normal rhythm, normal heart sounds. Absent: systolic murmur, diastolic murmur, rubs, gallop, clicks GI/Abdominal exam: Present: soft, normal bowel sounds. Absent: distended, tenderness, guarding, rebound, rigid Neurological exam: Present: alert, oriented X3, CN II-XII intact Psychiatric exam: Present: normal affect, normal mood Skin exam: Present: warm, dry, intact, normal color. Absent: rash Course Vital Signs 10/11/20 18:52 Temperature 98.0 F Pulse Rate 75 Respiratory 22 Rate Blood Pressure 153/72 O2 Sat by Pulse 95 Oximetry EKG Findings - EKG Comments: EKG Findings:: EKG obtained at 1905 shows normal sinus rhythm with a ventricular rate of 68, IL interval 164, QRS duration 88, QT 378, QTC 401. No evidence of ST elevation or depression. Medical Decision Making - Medical Decision Making 65-year-old female patient presents to the emergency department today for evaluation of chest pain and shortness of breath. Reports nausea. Labs reviewed and showed elevated white blood cell count at 13.4, neutrophil 11.8. Troponin 0.018. Chest x-ray is negative. COVID-19 test is negative. Urinalysis shows no evidence of infection. Upon reevaluation patient reports persistent chest pain and headache. She'll be admitted to the hospital for further evaluation by cardiology. She is given aspirin. She takes Eliquis. Case discussed with my attending Dr. Ware. Admission accepted by Dr. Ordonez. - Lab Data Result diagrams: 10/11/20 20:34 10/11/20 20:34 Lab Results 10/11/20 10/11/20 10/11/20 Range/Units 20:34 20:34 20:34 WBC 13.4 H (3.8-10.6) k/uL RBC 4.72 (3.80-5.40) m/uL Hgb 14.9 (11.4-16.0) gm/dL Hct 43.8 (34.0-46.0) % MCV 92.8 (80.0-100.0) fL MCH 31.5 (25.0-35.0) pg MCHC 33.9 (31.0-37.0) g/dL RDW 12.6 (11.5-15.5) % Plt Count 193 (150-450) k/uL MPV 8.7 Neutrophils % 88 % Lymphocytes % 5 % Monocytes % 4 % Eosinophils % 3 % Basophils % 0 % Neutrophils # 11.8 H (1.3-7.7) k/uL Lymphocytes # 0.6 L (1.0-4.8) k/uL Monocytes # 0.5 (0-1.0) k/uL Eosinophils # 0.4 (0-0.7) k/uL Basophils # 0.0 (0-0.2) k/uL PT 10.6 (9.0-12.0) sec INR 1.0 (<1.2) APTT 25.6 (22.0-30.0) sec Sodium 139 (137-145) mmol/L Potassium 5.1 (3.5-5.1) mmol/L Chloride 102 (98-107) mmol/L Carbon Dioxide 26 (22-30) mmol/L Anion Gap 11 mmol/L BUN 15 (7-17) mg/dL Creatinine 0.77 (0.52-1.04) mg/dL Est GFR (CKD-EPI)AfAm >90 (>60 ml/min/1.73 sqM) Est GFR (CKD-EPI)NonAf 80 (>60 ml/min/1.73 sqM) Glucose 116 H (74-99) mg/dL Calcium 9.7 (8.4-10.2) mg/dL Total Bilirubin 0.9 (0.2-1.3) mg/dL AST 33 (14-36) U/L ALT 17 (4-34) U/L Alkaline Phosphatase 88 (38-126) U/L Troponin I (0.000-0.034) ng/mL Total Protein 8.7 H (6.3-8.2) g/dL Albumin 5.1 H (3.5-5.0) g/dL Urine Color Urine Appearance (Clear) Urine pH (5.0-8.0) Ur Specific [place] (1.001-1.035) Urine Protein (Negative) Urine Glucose (UA) (Negative) Urine Ketones (Negative) Urine Blood (Negative) Urine Nitrite (Negative) Urine Bilirubin (Negative) Urine Urobilinogen (<2.0) mg/dL Ur Leukocyte Esterase (Negative) Urine WBC (0-5) /hpf Ur Squamous Epith Cells (0-4) /hpf Urine Mucus (None) /hpf Influenza Type A (PCR) (Not Detectd) Influenza Type B (PCR) (Not Detectd) RSV (PCR) (Not Detectd) SARS-CoV-2 (PCR) (Not Detectd) 10/11/20 10/11/20 10/11/20 Range/Units 20:34 21:30 21:46 WBC (3.8-10.6) k/uL RBC (3.80-5.40) m/uL Hgb (11.4-16.0) gm/dL Hct (34.0-46.0) % MCV (80.0-100.0) fL MCH (25.0-35.0) pg MCHC (31.0-37.0) g/dL RDW (11.5-15.5) % Plt Count (150-450) k/uL MPV Neutrophils % % Lymphocytes % % Monocytes % % Eosinophils % % Basophils % % Neutrophils # (1.3-7.7) k/uL Lymphocytes # (1.0-4.8) k/uL Monocytes # (0-1.0) k/uL Eosinophils # (0-0.7) k/uL Basophils # (0-0.2) k/uL PT (9.0-12.0) sec INR (<1.2) APTT (22.0-30.0) sec Sodium (137-145) mmol/L Potassium (3.5-5.1) mmol/L Chloride (98-107) mmol/L Carbon Dioxide (22-30) mmol/L Anion Gap mmol/L BUN (7-17) mg/dL Creatinine (0.52-1.04) mg/dL Est GFR (CKD-EPI)AfAm (>60 ml/min/1.73 sqM) Est GFR (CKD-EPI)NonAf (>60 ml/min/1.73 sqM) Glucose (74-99) mg/dL Calcium (8.4-10.2) mg/dL Total Bilirubin (0.2-1.3) mg/dL AST (14-36) U/L ALT (4-34) U/L Alkaline Phosphatase (38-126) U/L Troponin I 0.018 (0.000-0.034) ng/mL Total Protein (6.3-8.2) g/dL Albumin (3.5-5.0) g/dL Urine Color Yellow Urine Appearance Clear (Clear) Urine pH 5.0 (5.0-8.0) Ur Specific [place] 1.016 (1.001-1.035) Urine Protein Negative (Negative) Urine Glucose (UA) Negative (Negative) Urine Ketones Negative (Negative) Urine Blood Negative (Negative) Urine Nitrite Negative (Negative) Urine Bilirubin Negative (Negative) Urine Urobilinogen <2.0 (<2.0) mg/dL Ur Leukocyte Esterase Trace H (Negative) Urine WBC 6 H (0-5) /hpf Ur Squamous Epith Cells 1 (0-4) /hpf Urine Mucus Rare H (None) /hpf Influenza Type A (PCR) Not Detected (Not Detectd) Influenza Type B (PCR) Not Detected (Not Detectd) RSV (PCR) Not Detected (Not Detectd) SARS-CoV-2 (PCR) Not Detected (Not Detectd) - Radiology Data Radiology results: report reviewed, image reviewed Two-view x-ray of the chest is obtained. Report was reviewed in its entirety. Impression by Dr. Jackson shows no active cardiopulmonary disease. Normal heart. No adverse change. Disposition Clinical Impression: Chest pain Disposition: ADMITTED IP TO THIS HOSP Condition: Serious Decision to Admit Reason: Admit from EC Decision Date: 10/11/20 Decision Time: 22:23
[2020-10-11 22:00] LABS: Appearance,Urine Clear (Clear); Bilirubin,Urine Negative (Negative); Blood,Urine Negative (Negative); Color,Urine Yellow; Glucose,Urine (UA) Negative (Negative); Ketones,Urine Negative (Negative); Leukocyte Esterase,Urine Trace (Negative); Mucus,Urine Rare /hpf; Nitrite,Urine Negative (Negative); Protein,Urine Negative (Negative); Specific Gravity,Urine 1.016 (1.001-1.035); Squamous Epithelial Cell,Urine 1 /hpf (0-4); Urobilinogen,Urine <2.0 mg/dL (<2.0); WBC,Urine 6 /hpf (0-5)
[2020-10-11] MEDS ORDERED: NALOXONE 0.4 MG/ML 1 ML VIAL IV PRN (22:10)
[2020-10-11] MEDS ORDERED: ASPIRIN 81 MG PO STA (22:11)
[2020-10-11] MEDS ORDERED: MORPHINE SULFATE 4 MG/ML SYRINGE IVP STA (22:22)
[2020-10-12] MEDS ORDERED: FLECAINIDE 50 MG TAB PO PRN (00:45)
--- NOTE | 2020-10-12 00:46 | P.HPIM ---
History of Present Illness H&P Date: 10/12/20 The patient is a 65-year-old female with a PMH of A. fib on Eliquis and HTN who presented to the emergency room with complaints of chest pain. The patient notes that she was in her usual state of health until about 1 PM today when she suddenly developed a left-sided pressure-like chest discomfort. The pain was nonradiating, nonpleuritic, with no alleviating or exacerbating features, and was 7 out of 10. Patient notes that the pain gradually improved throughout the day and is currently a 3 out of 10. She reported associated nausea without vomiting and some shortness of breath. She denied dizziness, diaphoresis, palpitations. She also denied fever, chills, cough, leg swelling, or pain. She also reported no prior history of coronary artery disease or NH. In the emergency room, EKG revealed normal sinus rhythm at [address]/T-wave changes noted as reviewed by me. Chest x-ray was unremarkable. Laboratory evaluation remarkable for leukocytosis of 13.4, troponin 0.018. Review of Systems Pertinent positives and negatives as discussed in HPI, a complete review of systems was performed and all other systems are negative. Past Medical History Past Medical History: Atrial Fibrillation, Hypertension Additional Past Medical History / Comment(s): ARRYTHMIA/SARCODOSIS, fx back History of Any Multi-Drug Resistant Organisms: None Reported Past Surgical History: Breast Surgery, Orthopedic Surgery, Tubal Ligation Additional Past Surgical History / Comment(s): BREAST BIOPSY X 3/RT WRIST/LT KNEE SURG, Broke back a couple years ago. Past Anesthesia/Blood Transfusion Reactions: No Reported Reaction Past Psychological History: No Psychological Hx Reported Smoking Status: Never smoker Past Alcohol Use History: None Reported Past Drug Use History: None Reported - Past Family History Father Family Medical History: Cancer Additional Family Medical History / Comment(s): heart issues, Prostate and Bone CA Mother Family Medical History: Diabetes Mellitus, Hypertension Additional Family Medical History / Comment(s): valve issues Medications and Allergies Home Medications Medication Instructions Recorded Confirmed Type Loperamide HCl [Imodium A-D] 1 - 2 mg PO DAILY PRN 01/06/18 10/11/20 History Metoprolol Succinate [Toprol XL] 25 mg PO BID 01/06/18 10/11/20 History Acetaminophen/Diphenhydramine 2 tab PO HS 04/13/19 10/11/20 History [Tylenol Pm Ex-Strength Caplet] Apixaban [Eliquis] 5 mg PO BID 04/13/19 10/11/20 History Flecainide Acetate [Tambocor] 100 mg PO DAILY PRN 10/11/20 10/11/20 History Losartan Potassium [Cozaar] 25 mg PO DAILY 10/11/20 10/11/20 History Nitrofurantoin Macrocrystal 100 mg PO BID 10/11/20 10/11/20 History [Nitrofurantoin] Allergies Allergy/AdvReac Type Severity Reaction Status Date / Time codeine Allergy Anaphylaxis Verified 10/11/20 23:06 Physical Exam Vitals: Vital Signs Temp Pulse Resp BP Pulse Ox 10/11/20 18:52 98.0 F 75 22 153/72 95 Intake and Output 10/11/20 10/11/20 10/12/20 14:59 22:59 06:59 Other: Weight 92.986 kg General: non toxic, no distress, appears at stated age, obese Derm: no unusual rashes/lesions no unusual ecchymoses, warm, dry Head: atraumatic, normocephalic, symmetric Eyes: EOMI, no lid lag, anicteric sclera, pupils equal round reactive to light ENT: Nose and ears atraumatic, no thrush, no pharyngeal erythema Neck: No thyromegaly, no cervical lymphadenopathy, trachea midline, supple Mouth: no lip lesion, mucus membranes moist Cardiovascular: S1S2 reg, no murmur, positive posterior tibial pulse bilateral, no edema, capillary refill less than 2 seconds, no chest wall tenderness Lungs: CTA bilateral, no rhonchi, no rales , no accessory muscle use Abdominal: soft, nontender to palpation, no guarding, no appreciable organomegaly, normal bowel sounds Ext: no gross muscle atrophy, muscle strength 5 out of 5 in all 4 extremities grossly, no contractures, Neuro: CN II-XI grossly intact, light touch intact all 4 extremities, finger to nose within normal limits, Psych: Alert, oriented, appropriate affect Results CBC & Chem 7: 10/11/20 20:34 10/11/20 20:34 Labs: Abnormal Lab Results - Last 24 Hours (Table) 10/11/20 10/11/20 10/11/20 Range/Units 20:34 20:34 21:46 WBC 13.4 H (3.8-10.6) k/uL Neutrophils # 11.8 H (1.3-7.7) k/uL Lymphocytes # 0.6 L (1.0-4.8) k/uL Glucose 116 H (74-99) mg/dL Total Protein 8.7 H (6.3-8.2) g/dL Albumin 5.1 H (3.5-5.0) g/dL Ur Leukocyte Esterase Trace H (Negative) Urine WBC 6 H (0-5) /hpf Urine Mucus Rare H (None) /hpf Assessment and Plan Plan: Chest pain, rule out ACS -Cardiology consult -Cardiac monitoring -Continue with aspirin -Trend troponin Leukocytosis -No signs of active infection at this time -Monitor for now Chronic conditions: A. fib, hypertension -Continue with home medications DVT prophylaxis -Eliquis The patient is admitted with an anticipated less than 2 midnight stay for evaluation of afib CODE STATUS:Full Code Discussed with: Patient Anticipated discharge date: in am Anticipated discharge place: home A total of 35 minutes was spent on the care of this complex patient more than 50% of the time was spent in counseling and care coordination.
[2020-10-12] MEDS: MORPHINE SULFATE 4 MG/ML SYRINGE IVP PRN ×5 (02:27→23:07)
[2020-10-12] MEDS: ONDANSETRON 4 MG/2 ML VIAL IVP PRN ×2 (07:29→18:26)
[2020-10-12] MEDS ORDERED: ASPIRIN 325 MG TAB PO SCH (09:00)
[2020-10-12] MEDS: METOPROLOL SUCCINATE (ER) 25 MG TAB.ER.24H PO SCH ×2 (09:32→21:03)
[2020-10-12] MEDS: APIXABAN 5 MG TAB PO SCH ×2 (09:32→21:03)
[2020-10-12] MEDS: LOSARTAN 25 MG TAB PO SCH (09:32)
[2020-10-12] MEDS: NITROFURANTOIN MONOHYD/M-CRYST 100 MG CAP PO SCH ×2 (09:49→21:03)
--- NOTE | 2020-10-12 13:31 | P.CRDCN ---
History of Present Illness History of present illness: HISTORY OF PRESENTING ILLNESS This is a pleasant 65-year-old female past medical history significant for paroxysmal atrial fibrillation on eliquis, hypertension and sarcoidosis. She follows in the office with Dr. Lamar at [facility]. We have been asked to see in consultation for chest pain. She states yesterday while doing light activity around the house she had an episode of chest pain. Described as pressure on the left side of her chest. The pain was initially quite intense but did slowly seem to improve as the day went on. The pain did not radiate to the arm, back, neck or jaw. She has some associated warm flushed sensation and felt she could not take a deep enough breath. No palpitations. Today she feels ongoing warm sensation and mild nausea, but no further chest pain. She states she is quite symptomatic when she is in afib and can usually tell quite clearly. She does not feel as though this episode was related to afib. She recently established with an EP physician and had a loop recorder implanted and future plans for afib ablation. She states she underwent a lexiscan stress test in June with her logistics technician that was normal. She state s she is being treated for a UTI by her PCP on outpatient antibiotics on admission. DIAGNOSTICS EKG reveals sinus mechanism with no acute ST or T-wave changes. Chest xray negative for an acute cardiopulmonary process. Laboratory reviewed, WBC 13.4, hgb 14.9, plt 193, sodium 139, potassium 5.1, cre atinine 0.77, troponin negative x3. Current cardiac medications include losartan 25 mg daily, Toprol 25 mg twice a day, Eliquis 5 mg twice a day and flecainide 100 mg daily as needed. REVIEW OF SYSTEMS At the time of my exam: CONSTITUTIONAL: Denies fever or chills. CARDIOVASCULAR: Denies chest pain, shortness of breath, orthopnea, PND or palpitations. RESPIRATORY: Denies cough. GASTROINTESTINAL: Denies abdominal pain, diarrhea, constipation, nausea or vomiting. MUSCULOSKELETAL: Denies myalgias. NEUROLOGIC: Denies numbness, tingling, headacbe or weakness. ENDOCRINE: Denies fatigue, weight change, polydipsia or polyurina. GENITOURINARY: Denies burning, hematuria or urgency with micturation. HEMATOLOGIC: Denies history of anemia or bleeding. PHYSICAL EXAMINATION Blood pressure 136/66 heart rate 63 afebrile and maintaining oxygen saturation on room air. CONSTITUTIONAL: No apparent distress. HEENT: Head is normocephalic. Pupils are equal, round. Sclerae anicteric. Mucous membranes of the mouth are moist. No JVD. No carotid bruit. CHEST EXAMINATION: Lungs are clear to auscultation. No chest wall tenderness is noted on palpation or with deep breathing. HEART EXAMINATION: Regular rate and rhythm. S1, S2 heard. No murmurs, gallops or rub. ABDOMEN: Soft, nontender. Positive bowel sounds. EXTREMITIES: 2+ peripheral pulses, no lower extremity edema and no calf tenderness. NEUROLOGIC EXAMINATION: Patient is awake, alert and oriented x3. ASSESSMENT Chest pain Leuckocytosis Paroxysmal atrial fibrillation, currently in SR Hypertension PLAN An acute coronary event has been ruled out. Obtain 2D echocardiogram and doppler study to assess cardiac structure and function. Request a copy of her stress test from June for review. Interrogate loop recorder. Increase activity and assess for ongoing chest pain. Further recommendations to follow based on clinical course. Thank you kindly for this consultation. Nurse Practitioner note has been reviewed, I agree with a documented findings and plan of care. Patient was seen and examined. Past Medical History Past Medical History: Atrial Fibrillation, Hypertension Additional Past Medical History / Comment(s): ARRYTHMIA/SARCODOSIS, fx back History of Any Multi-Drug Resistant Organisms: None Reported Past Surgical History: Breast Surgery, Orthopedic Surgery, Tubal Ligation Additional Past Surgical History / Comment(s): BREAST BIOPSY X 3/RT WRIST/LT KNEE SURG, Broke back a couple years ago. Past Anesthesia/Blood Transfusion Reactions: No Reported Reaction Past Psychological History: No Psychological Hx Reported Smoking Status: Never smoker Past Alcohol Use History: None Reported Past Drug Use History: None Reported - Past Family History Father Family Medical History: Cancer Additional Family Medical History / Comment(s): heart issues, Prostate and Bone CA Mother Family Medical History: Diabetes Mellitus, Hypertension Additional Family Medical History / Comment(s): valve issues Medications and Allergies Home Medications Medication Instructions Recorded Confirmed Type Loperamide HCl [Imodium A-D] 1 - 2 mg PO DAILY PRN 01/06/18 10/11/20 History Metoprolol Succinate [Toprol XL] 25 mg PO BID 01/06/18 10/11/20 History Acetaminophen/Diphenhydramine 2 tab PO HS 04/13/19 10/11/20 History [Tylenol Pm Ex-Strength Caplet] Apixaban [Eliquis] 5 mg PO BID 04/13/19 10/11/20 History Flecainide Acetate [Tambocor] 100 mg PO DAILY PRN 10/11/20 10/11/20 History Losartan Potassium [Cozaar] 25 mg PO DAILY 10/11/20 10/11/20 History Nitrofurantoin Macrocrystal 100 mg PO BID 10/11/20 10/11/20 History [Nitrofurantoin] Allergies Allergy/AdvReac Type Severity Reaction Status Date / Time codeine Allergy Anaphylaxis Verified 10/11/20 23:06 Physical Exam Vitals: Vital Signs Temp Pulse Pulse Resp BP BP Pulse Ox 10/12/20 08:00 98.8 F 63 16 136/66 93 L 10/12/20 07:22 63 10/12/20 05:00 97.7 F 59 L 18 124/60 96 10/12/20 02:00 59 L 20 115/48 96 10/11/20 23:55 99.0 F 66 18 119/59 95 10/11/20 18:52 98.0 F 75 22 153/72 95 Intake and Output 10/11/20 10/12/20 10/12/20 22:59 06:59 14:59 Other: Weight 92.986 kg Results 10/11/20 20:34 10/11/20 20:34 Cardiac Enzymes 10/11/20 10/11/20 10/11/20 Range/Units 20:34 20:34 23:50 AST 33 (14-36) U/L Troponin I 0.018 <0.012 (0.000-0.034) ng/mL 10/12/20 Range/Units 02:40 AST (14-36) U/L Troponin I <0.012 (0.000-0.034) ng/mL Coagulation 10/11/20 Range/Units 20:34 PT 10.6 (9.0-12.0) sec APTT 25.6 (22.0-30.0) sec CBC 10/11/20 Range/Units 20:34 WBC 13.4 H (3.8-10.6) k/uL RBC 4.72 (3.80-5.40) m/uL Hgb 14.9 (11.4-16.0) gm/dL Hct 43.8 (34.0-46.0) % Plt Count 193 (150-450) k/uL Comprehensive Metabolic Panel 10/11/20 Range/Units 20:34 Sodium 139 (137-145) mmol/L Potassium 5.1 (3.5-5.1) mmol/L Chloride 102 (98-107) mmol/L Carbon Dioxide 26 (22-30) mmol/L BUN 15 (7-17) mg/dL Creatinine 0.77 (0.52-1.04) mg/dL Glucose 116 H (74-99) mg/dL Calcium 9.7 (8.4-10.2) mg/dL AST 33 (14-36) U/L ALT 17 (4-34) U/L Alkaline Phosphatase 88 (38-126) U/L Total Protein 8.7 H (6.3-8.2) g/dL Albumin 5.1 H (3.5-5.0) g/dL Current Medications Generic Name Dose Route Start Last Admin Trade Name Freq PRN Reason Stop Dose Admin Apixaban 5 mg 10/12/20 09:00 10/12/20 09:32 Apixaban 5 Mg Tab PO 5 mg BID NELLI Administration Aspirin 325 mg 10/12/20 09:00 10/12/20 09:32 Aspirin 325 Mg Tab PO 325 mg DAILY NELLI Administration Flecainide Acetate 100 mg 10/12/20 00:45 Flecainide 50 Mg Tab PO DAILY PRN AFIB Losartan Potassium 25 mg 10/12/20 09:00 10/12/20 09:32 Losartan 25 Mg Tab PO 25 mg DAILY NELLI Administration Metoprolol Succinate 25 mg 10/12/20 09:00 10/12/20 09:32 Metoprolol Succinate (Er) 25 Mg Tab.Er.24h PO 25 mg BID NELLI Administration Morphine Sulfate 4 mg 10/11/20 22:22 10/12/20 12:05 Morphine Sulfate 4 Mg/Ml Syringe IVP 4 mg Q4HR PRN Administration Pain Naloxone HCl 0.2 mg 10/11/20 22:10 Naloxone 0.4 Mg/Ml 1 Ml Vial IV Q2M PRN Opioid Reversal Nitrofurantoin Macrocrystals 100 mg 10/12/20 09:00 10/12/20 09:49 Nitrofurantoin Monohyd/M-Cryst 100 Mg Cap PO 100 mg BID NELLI Administration Ondansetron HCl 4 mg 10/11/20 22:10 10/12/20 07:29 Ondansetron 4 Mg/2 Ml Vial IVP 4 mg Q8HR PRN Administration Nausea And Vomiting Intake and Output 10/11/20 10/12/20 10/12/20 22:59 06:59 14:59 Other: Weight 92.986 kg 10/11/20 20:34 10/11/20 20:34
--- NOTE | 2020-10-12 17:05 | P.PN ---
Subjective Progress Note Date: 10/12/20 No new complaint at this time. Objective - Vital Signs Vital signs: Vital Signs Temp 97.9 F 10/12/20 15:00 Pulse 54 L 10/12/20 15:00 Resp 14 10/12/20 15:00 BP 121/65 10/12/20 15:00 Pulse Ox 94 L 10/12/20 15:00 Intake & Output 10/11/20 10/12/20 10/12/20 18:59 06:59 18:59 Intake Total 240 Balance 240 Weight 92.986 kg 92.986 kg Intake: Oral 240 - Exam Gen: awake, alert HEENT: normocephalic, atraumatic, good hearing acuity, moist mucous membranes Resp: good air exchange, breathing comfortably with no accessory muscle use, clear to auscultation bilaterally CVS: good distal perfusion x 4, regular rate and rhythm without murmurs GI: soft, NTTP, ND, appropriate bowel sounds : no SPT, no CVAT, rodriguez catheter not present MSK: no pitting edema, no clubbing Neuro: non-focal, moving all extremities Psych: cooperative, euthymic mood - Labs CBC & Chem 7: 10/11/20 20:34 10/11/20 20:34 Labs: Abnormal Lab Results - Last 24 Hours (Table) 10/11/20 10/11/20 10/11/20 Range/Units 20:34 20:34 21:46 WBC 13.4 H (3.8-10.6) k/uL Neutrophils # 11.8 H (1.3-7.7) k/uL Lymphocytes # 0.6 L (1.0-4.8) k/uL Glucose 116 H (74-99) mg/dL Total Protein 8.7 H (6.3-8.2) g/dL Albumin 5.1 H (3.5-5.0) g/dL Ur Leukocyte Esterase Trace H (Negative) Urine WBC 6 H (0-5) /hpf Urine Mucus Rare H (None) /hpf Assessment and Plan Assessment: Chest pain, rule out ACS -Cardiology consult -Cardiac monitoring -Continue with aspirin -Trend troponin Leukocytosis -No signs of active infection at this time -Monitor for now Chronic conditions: A. fib, hypertension -Continue with home medications DVT prophylaxis -Eliquis The patient is admitted with an anticipated less than 2 midnight stay for evaluation of afib CODE STATUS:Full Code Discussed with: Patient Anticipated discharge date: in am Anticipated discharge place: home
[2020-10-12] MEDS: ACETAMINOPHEN TAB 325 MG TAB PO PRN (21:03)
[2020-10-13] MEDS ORDERED: ALPRAZolam 0.25 MG TAB PO STA (03:16)
--- NOTE | 2020-10-13 03:50 | XR ---
EXAM: XR Chest, 1 View CLINICAL HISTORY: ITS.REASON XR Reason: SOB TECHNIQUE: Frontal view of the chest. COMPARISON: No relevant prior studies available. FINDINGS: Lungs: No definite focal consolidation. The pulmonary vasculature demonstrates no significant radiographic abnormality. Pleural space: Unremarkable. No pneumothorax. No large pleural effusion. Heart: The cardiac silhouette is borderline enlarged and presumed accentuated by portable technique. Mediastinum: No significant abnormality. The trachea is midline. Bones/joints: Unremarkable. Tubes, lines and devices: A cardiac monitoring device overlies the left hilar structures and is presumed in the subcutaneous soft tissues. IMPRESSION: No definite focal consolidation or acute cardiopulmonary process identified. Borderline cardiomegaly, presumed accentuated by portable technique with overlying cardiac monitoring device noted. No radiographic findings to suggest florid CHF.
[2020-10-13] MEDS: IPRATROPIUM-ALBUTEROL 3 ML NEB INHALATION PRN ×3 (04:08→19:49)
[2020-10-13] MEDS: ONDANSETRON 4 MG/2 ML VIAL IVP PRN (07:36)
[2020-10-13] MEDS: ACETAMINOPHEN TAB 325 MG TAB PO PRN ×3 (07:37→21:03)
[2020-10-13] MEDS: NITROFURANTOIN MONOHYD/M-CRYST 100 MG CAP PO SCH ×2 (07:37→21:03)
[2020-10-13] MEDS: LOSARTAN 25 MG TAB PO SCH (07:38)
[2020-10-13] MEDS: APIXABAN 5 MG TAB PO SCH ×2 (07:38→21:03)
[2020-10-13] MEDS: METOPROLOL SUCCINATE (ER) 25 MG TAB.ER.24H PO SCH ×2 (07:45→21:03)
[2020-10-13] MEDS ORDERED: SODIUM CHLORIDE 0.9% 1,000 ML IV STA (08:26)
--- NOTE | 2020-10-13 09:50 | P.PN ---
Subjective HISTORY OF PRESENTING ILLNESS This is a pleasant 65-year-old female past medical history significant for paroxysmal atrial fibrillation on eliquis, hypertension and sarcoidosis. She follows in the office with Dr. Lamar at [facility]. We have been asked to see in consultation for chest pain. She states yesterday while d oing light activity around the house she had an episode of chest pain. Described as pressure on the left side of her chest. The pain was initially quite intense but did slowly seem to improve as the day went on. The pain did not radiate to the arm, back, neck or jaw. She has some associated warm flushed sensation and felt she could not take a deep enough breath. No palpitations. Today she feels ongoing warm sensation and mild nausea, but no further chest pain. She states she is quite symptomatic when she is in afib and can usually tell quite clearly. She does not feel as though this episode was related to afib. She recently established with an EP physician and had a loop recorder implanted and future plans for afib ablation. She states she underwent a lexiscan stress test in June with her outside plant cable engineer that was normal. She states she is being treated for a UTI by her PCP on outpatient antibiotics on admission. 10/13/2020 Patient seen and examined resting comfortably laying flat in bed in no acute distress. She states she had a particularly uncomfortable night. She was found by nursing staff to be hypoxic with a pulse ox of 89%. Chest x-ray was ordered and revealed no definite consolidation or acute cardiopulmonary process, no overt heart failure or fluid overload. Vital signs indicate she had a temperature of 102.2F, blood pressure 133/60 970. Her oxygen saturation has improved with nasal cannula at 3 L. She has no further symptoms of chest discomfort. She continues to feel mildly short of breath. She has no palpitations. Loop recorder interrogation was unremarkable. There is no evidence of atrial fibrillation or other arrhythmia. PHYSICAL EXAMINATION CONSTITUTIONAL: No apparent distress. HEENT: Head is normocephalic. Pupils are equal, round. Sclerae anicteric. Mucous membranes of the mouth are moist. No JVD. No carotid bruit. CHEST EXAMINATION: Lungs are clear to auscultation. No chest wall tenderness is noted on palpation or with deep breathing. HEART EXAMINATION: Regular rate and rhythm. S1, S2 heard. No murmurs, gallops or rub. EXTREMITIES: 2+ peripheral pulses, no lower extremity edema and no calf tenderness. ASSESSMENT Chest pain, atypical for angina. Leuckocytosis Febrile illness Paroxysmal atrial fibrillation, currently in SR Hypertension PLAN An acute coronary event has been ruled out. We will await the stress test report for review. Echocardiogram has been obtained and will be reviewed. Check blood cultures and initiate IV fluids at 75 mL/h. Check NT proBNP. Further evaluation and recommendations for the primary care team given her fever. Unlikely to be cardiac in nature. Nurse Practitioner note has been reviewed, I agree with a documented findings and plan of care. Patient was seen and examined. Objective - Vital Signs Vital signs: Vital Signs Temp 98.7 F 10/13/20 09:05 Pulse 70 10/13/20 09:35 Resp 16 10/13/20 09:35 BP 133/69 10/13/20 09:05 Pulse Ox 95 10/13/20 09:25 Intake & Output 10/12/20 10/13/20 10/13/20 18:59 06:59 18:59 Intake Total 240 Balance 240 Weight 92.986 kg Intake: Oral 240 Other: # Voids 1 - Labs CBC & Chem 7: 10/11/20 20:34 10/11/20 20:34
--- NOTE | 2020-10-13 10:01 | ECHOF ---
Referral Reason:cp MEASUREMENTS -------- HEIGHT: 175.3 cm WEIGHT: 93.0 kg BP: 199/88 RVIDd: 2.9 cm (< 3.3) IVSd: 1.1 cm (0.6 - 1.1) LVIDd: 4.2 cm (3.9 - 5.3) LVPWd: 1.2 cm (0.6 - 1.1) IVSs: 1.7 cm LVIDs: 2.7 cm LVPWs: 1.6 cm LA Diam: 3.3 cm (2.7 - 3.8) LAESV Index (A-L): 25.17 ml/m Ao Diam: 2.9 cm (2.0 - 3.7) AV Cusp: 2.3 cm (1.5 - 2.6) MV EXCURSION: 16.269 mm (> 18.000) MV EF SLOPE: 80 mm/s (70 - 150) EPSS: 0.4 cm MV E Giorgio: 0.83 m/s MV DecT: 257 ms MV A Giorgio: 0.99 m/s MV E/A Ratio: 0.84 RAP: 5.00 mmHg RVSP: 38.57 mmHg FINDINGS -------- Sinus rhythm. This was a technically adequate study. The left ventricular size is normal. There is borderline concentric left ventricular hypertrophy. Overall left ventricular systolic function is normal with, an EF between 55 - 60 %. The right ventricle is normal in size. Normal LA size by volume 22+/-6 ml/m2. The right atrial size is normal. Interatrial and interventricular septum intact. The aortic valve is trileaflet, and appears structurally normal. No aortic stenosis or regurgitation. The mitral valve is normal. There is trace mitral regurgitation. The tricuspid valve appears structurally normal. Mild tricuspid regurgitation present. There is m ild pulmonary hypertension. The right ventricular systolic pressure, as measured by Doppler, is 38. 57mmHg. There is no pulmonic regurgitation present. The aortic root size is normal. Normal inferior vena cava with normal inspiratory collapse consistent with estimated right atrial pre ssure of 5 mmHg. There is no pericardial effusion. CONCLUSIONS -------- 1. There is borderline concentric left ventricular hypertrophy. 2. Overall left ventricular systolic function is normal with, an EF between 55 - 60 %. 3. Normal LA size by volume 22+/-6 ml/m2. 4. The aortic valve is trileaflet, and appears structurally normal. No aortic stenosis or regurgitati on. 5. There is trace mitral regurgitation. 6. Mild tricuspid regurgitation present. 7. There is mild pulmonary hypertension. 8. There is no pericardial effusion. [employer]: Rosenda Lay RDCS
--- NOTE | 2020-10-13 14:39 | P.PN ---
Subjective Progress Note Date: 10/13/20 Pt had fever, nausea, headache, and vomiting this AM. UCx recently grew E. coli, will repeat Objective - Vital Signs Vital signs: Vital Signs Temp 98.0 F 10/13/20 13:55 Pulse 68 10/13/20 13:55 Resp 16 10/13/20 13:55 BP 132/61 10/13/20 13:55 Pulse Ox 94 L 10/13/20 13:55 Intake & Output 10/12/20 10/13/20 10/13/20 18:59 06:59 18:59 Intake Total 240 Balance 240 Weight 92.986 kg Intake: Oral 240 Other: # Voids 1 - Exam Gen: awake, alert HEENT: normocephalic, atraumatic, good hearing acuity, moist mucous membranes Resp: good air exchange, breathing comfortably with no accessory muscle use, clear to auscultation bilaterally CVS: good distal perfusion x 4, regular rate and rhythm without murmurs GI: soft, NTTP, ND, appropriate bowel sounds : no SPT, no CVAT, rodriguez catheter not present MSK: no pitting edema, no clubbing Neuro: non-focal, moving all extremities Psych: cooperative, euthymic mood - Labs CBC & Chem 7: 10/11/20 20:34 10/11/20 20:34 Assessment and Plan Assessment: Chest pain, rule out ACS -Cardiology consult -Cardiac monitoring -Continue with aspirin -Trend troponin Leukocytosis with Fever -repeat UA with UCx -pending BCx -started ceftriaxone -Monitor for now Chronic conditions: A. fib, hypertension -Continue with home medications DVT prophylaxis -Eliquis The patient is admitted with an anticipated less than 2 midnight stay for evaluation of afib CODE STATUS:Full Code Discussed with: Patient Anticipated discharge date: in am Anticipated discharge place: home
[2020-10-14 02:46] LABS: Appearance,Urine Clear (Clear); Bilirubin,Urine Negative (Negative); Blood,Urine Negative (Negative); Color,Urine Yellow; Glucose,Urine (UA) Negative (Negative); Ketones,Urine 1+ (Negative); Leukocyte Esterase,Urine Moderate (Negative); Nitrite,Urine Negative (Negative); PH, Urine 5.5 (5.0-8.0); Protein,Urine Negative (Negative); RBC,Urine <1 /hpf (0-5); Squamous Epithelial Cell,Urine <1 /hpf (0-4); Urobilinogen,Urine <2.0 mg/dL (<2.0); WBC,Urine 5 /hpf (0-5)
[2020-10-14] MEDS: IPRATROPIUM-ALBUTEROL 3 ML NEB INHALATION PRN ×3 (08:10→20:26)
[2020-10-14] MEDS: APIXABAN 5 MG TAB PO SCH ×2 (08:31→20:50)
[2020-10-14] MEDS: LOSARTAN 25 MG TAB PO SCH (08:31)
[2020-10-14] MEDS: METOPROLOL SUCCINATE (ER) 25 MG TAB.ER.24H PO SCH ×2 (08:31→20:50)
[2020-10-14] MEDS: NITROFURANTOIN MONOHYD/M-CRYST 100 MG CAP PO SCH ×2 (08:32→20:50)
--- NOTE | 2020-10-14 09:34 | P.PN ---
Subjective HISTORY OF PRESENTING ILLNESS This is a pleasant 65-year-old female past medical history significant for paroxysmal atrial fibrillation on eliquis, hypertension and sarcoidosis. She follows in the office with Dr. Lamar at [facility]. We have been asked to see in consultation for chest pain. She states yesterday while d oing light activity around the house she had an episode of chest pain. Described as pressure on the left side of her chest. The pain was initially quite intense but did slowly seem to improve as the day went on. The pain did not radiate to the arm, back, neck or jaw. She has some associated warm flushed sensation and felt she could not take a deep enough breath. No palpitations. Today she feels ongoing warm sensation and mild nausea, but no further chest pain. She states she is quite symptomatic when she is in afib and can usually tell quite clearly. She does not feel as though this episode was related to afib. She recently established with an EP physician and had a loop recorder implanted and future plans for afib ablation. She states she underwent a lexiscan stress test in June with her visiting housekeeper that was normal. She states she is being treated for a UTI by her PCP on outpatient antibiotics on admission. 10/13/2020 Patient seen and examined resting comfortably laying flat in bed in no acute distress. Overall she is feeling better from yesterday. She had a repeat UA revealing moderate leukocytes. She has been started on IV antibiotics. Blood cultures pending. Blood pressure 152/74 heart rate 69 afebrile for the previous 24 hours. NT proBNP 963. Stress test from her primary visiting housekeeper performed 06/2020 reviewed, negative for reversible ischemia. PHYSICAL EXAMINATION CONSTITUTIONAL: No apparent distress. HEENT: Head is normocephalic. Pupils are equal, round. Sclerae anicteric. Mucous membranes of the mouth are moist. No JVD. No carotid bruit. CHEST EXAMINATION: Lungs are clear to auscultation. No chest wall tenderness is noted on palpation or with deep breathing. HEART EXAMINATION: Regular rate and rhythm. S1, S2 heard. No murmurs, gallops or rub. EXTREMITIES: 2+ peripheral pulses, no lower extremity edema and no calf tenderness. ASSESSMENT Chest pain, atypical for angina. Leuckocytosis Urinary tract infection Febrile illness Paroxysmal atrial fibrillation, currently in SR Hypertension PLAN Stable from a cardiac perspective. Ongoing treatment of UTI per primary care team. Recommend follow up with her visiting housekeeper upon discharge. We will follow along as needed, please call with further questions or concerns. Nurse Practitioner note has been reviewed, I agree with a documented findings and plan of care. Patient was seen and examined. Objective - Vital Signs Vital signs: Vital Signs Temp 98.3 F 10/14/20 06:51 Pulse 69 10/14/20 08:24 Resp 14 10/14/20 06:51 BP 152/74 10/14/20 06:51 Pulse Ox 92 L 10/14/20 08:11 Intake & Output 10/13/20 10/14/20 10/14/20 18:59 06:59 18:59 Intake Total 200 Output Total 200 Balance 0 Intake: Oral 200 Output: Urine 200 Other: # Voids 2 1 - Labs CBC & Chem 7: 10/11/20 20:34 10/11/20 20:34 Labs: Abnormal Lab Results - Last 24 Hours (Table) 10/14/20 Range/Units 02:15 Urine Ketones 1+ H (Negative) Ur Leukocyte Esterase Moderate H (Negative)
--- NOTE | 2020-10-14 11:43 | XR ---
EXAMINATION TYPE: XR chest 1V DATE OF EXAM: 10/14/2020 COMPARISON: 10/13/2020 HISTORY: Cough TECHNIQUE: Single frontal view of the chest is obtained. FINDINGS: There is left lower lobe infiltrate. There is prominence of the right cardiac border. Like ly related to prominent pericardial fat pad noted on CAT scan 04/28/2014. No pneumothorax. Heart size stable. Atherosclerotic change aorta. Arthropathy of the shoulder. IMPRESSION: 1. Left lower lobe infiltrate correlate for pneumonia..
[2020-10-14] MEDS: BUTALB/APAP/CAFF 50-325-40MG TAB PO PRN ×2 (11:51→20:50)
--- NOTE | 2020-10-14 13:07 | P.PN ---
Subjective Progress Note Date: 10/14/20 Pt felt better last night, but again feels ill this AM. Has new dry cough, maintains oxygen requirement. C/O BIRD with photo/phonophobia, mild SPT tenderness. Objective - Vital Signs Vital signs: Vital Signs Temp 98.3 F 10/14/20 06:51 Pulse 70 10/14/20 12:11 Resp 14 10/14/20 06:51 BP 152/74 10/14/20 06:51 Pulse Ox 92 L 10/14/20 08:11 Intake & Output 10/13/20 10/14/20 10/14/20 18:59 06:59 18:59 Intake Total 200 Output Total 200 Balance 0 Intake: Oral 200 Output: Urine 200 Other: # Voids 2 1 - Exam Gen: awake, alert HEENT: normocephalic, atraumatic, good hearing acuity, moist mucous membranes Resp: good air exchange, breathing comfortably with no accessory muscle use CVS: good distal perfusion x 4, regular rate and rhythm without murmurs GI: soft, ND, mild ttp of LLQ : + SPT, no CVAT, rodriguez catheter not present MSK: no pitting edema, no clubbing Neuro: non-focal, moving all extremities Psych: cooperative, euthymic mood - Labs CBC & Chem 7: 10/11/20 20:34 10/11/20 20:34 Labs: Abnormal Lab Results - Last 24 Hours (Table) 10/14/20 Range/Units 02:15 Urine Ketones 1+ H (Negative) Ur Leukocyte Esterase Moderate H (Negative) Microbiology - Last 24 Hours (Table) 10/13/20 08:59 Blood Culture - Preliminary Blood No Growth after 24 hours Assessment and Plan Assessment: Acute Hypoxemic Respiratory Failure CAP Complicated UTI -repeat UA appears infected -f/u UCx -pending BCx -started ceftriaxone -Monitor for now -CXR demonstrates LLL infiltrate Headache Nausea - if no resolution of fever with tx for CAP/UTI as above, consideration of LP to r/o meningitis, but low suspicion for bacterial meningitis at this time - fioricet PRN for pain - tylenol PRN for pain - zofran PRN for nausea Chest pain, ruled out ACS -Cardiology consult -Cardiac monitoring -Continue with aspirin -Trend troponin Chronic conditions: A. fib, hypertension -Continued with home medications DVT prophylaxis -Eliquis The patient is admitted with an anticipated less than 2 midnight stay for evaluation of afib CODE STATUS:Full Code Discussed with: Patient Anticipated discharge date: in am Anticipated discharge place: home
[2020-10-14 13:59] LABS: Basophils % (A) 0 %; Eosinophils # (A) 0.5 k/uL (0-0.7); Eosinophils % (A) 6 %; HCT 37.4 % (34.0-46.0); HGB 12.5 gm/dL (11.4-16.0); Lymphocytes # (A) 0.7 k/uL (1.0-4.8); Lymphocytes % (A) 8 %; MCH 30.7 pg (25.0-35.0); MCHC 33.4 g/dL (31.0-37.0); MCV 91.7 fL (80.0-100.0); Mean Platelet Volume 8.8; Monocytes # (A) 0.3 k/uL (0-1.0); Monocytes % (A) 4 %; Neutrophils % (A) 81 %; Platelet Count 192 k/uL (150-450); RBC 4.07 m/uL (3.80-5.40); RDW 12.5 % (11.5-15.5); WBC 8.6 k/uL (3.8-10.6)
[2020-10-14 14:10] LABS: African American GFR (CKD) >90 (>60 ml/min/1.73 sqM); Anion Gap 9 mmol/L; Blood Urea Nitrogen 12 mg/dL (7-17); Carbon Dioxide 24 mmol/L (22-30); Chloride 103 mmol/L (98-107); Glucose 130 mg/dL (74-99); Magnesium 2.2 mg/dL (1.6-2.3); Non-African American GFR(CKD) 86 (>60 ml/min/1.73 sqM); Potassium 4.3 mmol/L (3.5-5.1); Sodium 136 mmol/L (137-145)
[2020-10-14] MEDS: ACETAMINOPHEN TAB 325 MG TAB PO PRN (16:44)
[2020-10-15] MEDS: ACETAMINOPHEN TAB 325 MG TAB PO PRN ×3 (00:10→13:02)
[2020-10-15] MEDS: BUTALB/APAP/CAFF 50-325-40MG TAB PO PRN ×3 (01:15→15:33)
[2020-10-15] MEDS: METOPROLOL SUCCINATE (ER) 25 MG TAB.ER.24H PO SCH ×2 (08:18→20:59)
[2020-10-15] MEDS: NITROFURANTOIN MONOHYD/M-CRYST 100 MG CAP PO SCH ×2 (08:18→20:58)
[2020-10-15] MEDS: APIXABAN 5 MG TAB PO SCH ×2 (08:18→20:59)
[2020-10-15] MEDS: LOSARTAN 25 MG TAB PO SCH (08:19)
[2020-10-15] MEDS: IPRATROPIUM-ALBUTEROL 3 ML NEB INHALATION PRN (08:46)
[2020-10-15 11:05] LABS: Basophils # (A) 0.02 X 10*3/uL (0.00-0.10); Basophils % (A) 0.4 %; Eosinophils % (A) 7.3 %; HCT 36.9 % (37.2-46.3); HGB 11.8 g/dL (12.0-15.0); Lymphocytes # (A) 0.93 X 10*3/uL (0.90-5.00); Lymphocytes % (A) 17.1 %; MCH 30.1 pg (27.0-32.0); MCV 94.1 fL (80.0-97.0); Mean Platelet Volume 11.8 fL (9.5-12.2); Monocytes # (A) 0.43 X 10*3/uL (0.20-1.00); Monocytes % (A) 7.9 %; Neutrophils # (A) 3.66 X 10*3/uL (1.80-7.70); Neutrophils % (A) 67.1 %; Platelet Count 195 X 10*3/uL (140-440); RBC 3.92 X 10*6/uL (4.10-5.20); RDW 12.8 % (11.5-14.5); WBC 5.45 X 10*3/uL (4.50-10.00)
--- NOTE | 2020-10-15 11:46 | P.CNNES ---
History of Present Illness Consult date: 10/15/20 Requesting physician: Eliana Crenshaw Reason for Consult: headache History of Present Illness: This is a 65-year-old woman with medical history of atrial fibrillation on Eliquis, hypertension that presented to the emergency department for chest pain. Neurology is consulted for headaches. Patient stated that she came into the hospital this Sunday because of chest pain and she had associated bilateral frontal headache and the headache she had was the pressure throbbing headache. She stated the headache resolved but then Sunday she stared having right parietal headache and she feels the headache feels like a sharp it's localized. She feels currently at 7/10 and she said she's has been having it since this . She has mild photophobia but denies phonophobia. She denies nausea vomiting. Denies any visual disturbance, focal weakness or numbness. Denies difficulty getting her words out. She feels with medication or headaches are getting somewhat better but did not resolve that. She denies any history of headaches in the past. Denies any trauma to the head or neck. During the history taken she was coughing and she stated that she was given a diagnosis of pneumonia. She was also given a diagnosis of ureter tract infection. She said that she was given a medication caused her to have a rash in bilateral lower extremity from the waist down eyes did not know what that medication is. Patient denies any history of migraine. During the hospital stay patient was given the morphine. Some of the workup in the hospital consisted of: vitals: the patient's blood pressure has been in the range of 120;s to 130s for the most part systolic while diastolic in 60 to 70. Heart rate 68, respiratory of 18, temperature of 97.9 Fahrenheit oral and pulse ox of 97% at room air. Patient had one-time episode of a fever of 102.2 and that was on 10/13/2020 at around 7:00 otherwise been afebrile. 2-D echo was reported as overall left ventricle stock function is normal with ejection fraction 55-60%. Normal left atrial size by volume. On initial presentation the white blood cells 13.4 and repeated and it's 8.6 and repeat it was normal. Serum glucose was 1:30 last. Sodium is 136 last which is minimally low. Otherwise the rest of the basic electrolytes were reviewed and were normal. SARS-COV2 PCR is not detected. Patient was felt to have urinary tract infection Review of Systems Review of system: The 12 point system was reviewed and apparent positive and negative per HPI. Past Medical History Past Medical History: Atrial Fibrillation, Hypertension Additional Past Medical History / Comment(s): Current UTI on antibiotics, hypoglycemia, sarcoidosis in remission, compression fractures T12-L1 with chronic back pain, R heel spur, colitis in her 20s, benign colon polyp, mononu cleosis History of Any Multi-Drug Resistant Organisms: None Reported Past Surgical History: Breast Surgery, Orthopedic Surgery, Tubal Ligation Additional Past Surgical History / Comment(s): R wrist carpal tunnel release, L knee arthroscopy, bilateral feet toenail removal, bronchoscopy with bx, 3 benign L breast biopsies, 1 R breast benign biopsy, D&C Past Anesthesia/Blood Transfusion Reactions: No Reported Reaction, Motion Sickness Additional Past Anesthesia/Blood Transfusion Reaction / Comment(s): Clausterphobia. Smoking Status: Former smoker - Past Family History Father Family Medical History: Cancer Additional Family Medical History / Comment(s): heart issues, Prostate and Bone CA Mother Family Medical History: Diabetes Mellitus, Hypertension Additional Family Medical History / Comment(s): valve issues Medications and Allergies Home Medications Medication Instructions Recorded Confirmed Type Loperamide HCl [Imodium A-D] 1 - 2 mg PO DAILY PRN 01/06/18 10/11/20 History Metoprolol Succinate [Toprol XL] 25 mg PO BID 01/06/18 10/11/20 History Acetaminophen/Diphenhydramine 2 tab PO HS 04/13/19 10/11/20 History [Tylenol Pm Ex-Strength Caplet] Apixaban [Eliquis] 5 mg PO BID 04/13/19 10/11/20 History Flecainide Acetate [Tambocor] 100 mg PO DAILY PRN 10/11/20 10/11/20 History Losartan Potassium [Cozaar] 25 mg PO DAILY 10/11/20 10/11/20 History Nitrofurantoin Macrocrystal 100 mg PO BID 10/11/20 10/11/20 History [Nitrofurantoin] Allergies Allergy/AdvReac Type Severity Reaction Status Date / Time codeine Allergy Anaphylaxis Verified 10/11/20 23:06 Physical Examination - Vital Signs Vital Signs: Vital Signs Temp Pulse Pulse Resp BP Pulse Ox 10/15/20 08:56 68 18 10/15/20 08:48 66 18 97 10/15/20 07:12 97.9 F 54 L 16 129/72 94 L 10/15/20 02:00 98.3 F 58 L 16 124/74 91 L 10/14/20 20:40 68 10/14/20 20:26 72 10/14/20 20:00 99.6 F 59 L 16 128/71 94 L 10/14/20 15:00 98.2 F 64 14 101/63 93 L 10/14/20 12:11 70 10/14/20 12:03 73 Intake and Output 10/14/20 10/15/20 10/15/20 22:59 06:59 14:59 Intake Total 120 Balance 120 Intake: Oral 120 Other: # Voids 2 GENERAL: The patient is lying in bed and is not in acute distress. CHEST: The heart rate is regular rate rhythm. No murmurs to auscultation. LUNG: Clear to auscultation bilaterally no wheezing noted throughout. Not labored breathing. ABDOMEN/GI: Bowel sounds present in all 4 quadrants. No tenderness to palpation throughout. NEUROLOGICAL: Higher mental function: The patient is awake, alert, oriented to self, place and time. Patient is following commands. No aphasia and no neglect. Cranial nerves: The pupils are round, right is 3mm while left is 4mm and reactive to light and accommodation. Visual land are full to confrontation throughout. Extraocular movement is intact no nystagmus is noted. Facial sensation is normal to touch throughout. The facial strength is normal throughout. Hearing is normal bilaterally to hand rub. Tongue is midline and moved [id number] without any difficulty. No dysarthria is noted. Shoulder shrug is normal bilaterally. Motor: Gait is normal with normal arm swings. The strength is 5 over 5 throughout. Normal tone and bulk. Cerebellum: Normal finger to nose heel to chin bilaterally. Sensation: Sensation is normal to touch throughout. Reflexes (right/left): 2+ throughout. Plantars are downgoing bilaterally. Results - Laboratory Findings CBC and BMP: 10/15/20 04:54 10/14/20 13:28 Abnormal Lab Findings: Abnormal Labs 10/11/20 10/11/20 10/11/20 20:34 20:34 21:46 WBC 13.4 H Neutrophils # 11.8 H Lymphocytes # 0.6 L Sodium Glucose 116 H Total Protein 8.7 H Albumin 5.1 H Procalcitonin Urine Ketones Ur Leukocyte Esterase Trace H Urine WBC 6 H Urine Mucus Rare H 10/14/20 10/14/20 10/14/20 02:15 13:28 13:28 WBC Neutrophils # Lymphocytes # 0.7 L Sodium 136 L Glucose 130 H Total Protein Albumin Procalcitonin Urine Ketones 1+ H Ur Leukocyte Esterase Moderate H Urine WBC Urine Mucus 10/14/20 13:28 WBC Neutrophils # Lymphocytes # Sodium Glucose Total Protein Albumin Procalcitonin 0.69 H Urine Ketones Ur Leukocyte Esterase Urine WBC Urine Mucus Assessment and Plan Assessment: Cephalgia (unknow exact cause). Please avoid morphine since can cause headaches. Chest pain Complicated urinary tract infection Pneumonia Acute hypoxemic respiratory failure Atrial fibrillation on Eliquis Hypertension Plan: I ordered CT of the head without contrast urgent. The patient was notified that there is nothing for me to support getting a CT angiography of the head and neck at this time since nothing on examination or history supports getting the past and she is in agreement. We'll wait for the CT of the head first. The patient the was started on Fiorcet by mouth sets 1 tablet every 4 hours as needed I the primary team. Patient is given morphine 4 mg every 4 hours when necessary which and cause headaches. If possible to avoid it. I am not sure the cause of the patient's skin rash from the waist down what medication she was ALLERGIC to. The plan is discussed with the patient and her nurse. Thank you for the consultation. Husam Trevino MD Neuro-Hospitalist Time with Patient: Greater than 30
--- NOTE | 2020-10-15 12:14 | CT ---
EXAMINATION TYPE: CT brain wo con DATE OF EXAM: 10/15/2020 COMPARISON: None HISTORY: Headache. CT DLP: 1072.3 mGycm Automated exposure control for dose reduction was used. FINDINGS: There is mild generalized degenerative change with a slightly greater frontal component. No midline s hift or mass effect. No acute hemorrhage. Orbits are symmetric. Sinuses are clear. Craniocervical vu ction maintained. Calvarium intact. Sella turcica has a normal appearance. IMPRESSION: MILD TO THE DEGENERATIVE CHANGE WITH A GREATER FRONTAL LOBE COMPONENT. IF SYMPTOMS PERSIST CONSIDER M RI.
[2020-10-15 13:39] LABS: African American GFR (CKD) 103.9 (60.0-200.0); Anion Gap 5.9 mmol/L (4.00-12.00); BUN/Creat Ratio 17.14 Ratio (12.00-20.00); Calcium 8.7 mg/dL (8.7-10.3); Carbon Dioxide 26.1 mmol/L (21.6-31.8); Magnesium 2.2 mg/dL (1.5-2.4); Non-African American GFR(CKD) 89.7 (60.0-200.0)
--- NOTE | 2020-10-15 17:21 | P.PN ---
Subjective Progress Note Date: 10/15/20 Pt continues to report BIRD, which is only midly improved with fioricet, tylenol. Otherwise is feeling better overall. Oxygen requirement returned to room air since initiation of abx. Objective - Vital Signs Vital signs: Vital Signs Temp 97.9 F 10/15/20 14:00 Pulse 59 L 10/15/20 14:00 Resp 16 10/15/20 14:00 BP 121/64 10/15/20 14:00 Pulse Ox 97 10/15/20 14:00 Intake & Output 10/14/20 10/15/20 10/15/20 18:59 06:59 18:59 Intake Total 120 Balance 120 Intake: Oral 120 Other: # Voids 2 - Exam Gen: awake, alert HEENT: normocephalic, atraumatic, good hearing acuity, moist mucous membranes Resp: good air exchange, breathing comfortably with no accessory muscle use CVS: good distal perfusion x 4, regular rate and rhythm without murmurs GI: soft, ND, mild ttp of LLQ : + SPT, no CVAT, rodriguez catheter not present MSK: no pitting edema, no clubbing Neuro: non-focal, moving all extremities Psych: cooperative, euthymic mood - Labs CBC & Chem 7: 10/15/20 04:54 10/15/20 04:54 Labs: Abnormal Lab Results - Last 24 Hours (Table) 10/14/20 10/15/20 10/15/20 Range/Units 13:28 04:54 04:54 RBC 3.92 L (4.10-5.20) X 10*6/uL Hgb 11.8 L (12.0-15.0) g/dL Hct 36.9 L (37.2-46.3) % Eosinophils # 0.40 H (0.04-0.35) X 10*3/uL Glucose 113 H (70-110) mg/dL Procalcitonin 0.69 H (0.02-0.09) ng/mL Microbiology - Last 24 Hours (Table) 10/13/20 08:59 Blood Culture - Preliminary Blood No Growth after 48 hours Assessment and Plan Assessment: Acute Hypoxemic Respiratory Failure CAP Complicated UTI -repeat UA appears borderline, but was done after ceftriaxone initiated -UCx = was not reflexed from UA, so no data available -pending BCx = NGTD -started ceftriaxone, day 3/7 -CXR demonstrates LLL infiltrate Headache Nausea - if no resolution of fever with tx for CAP/UTI as above, consideration of LP to r/o meningitis, but low suspicion for bacterial meningitis at this time - neurology consulted, appreciate recommendations; BIRD is likely secondary to medication use, will reduce morphine usage. - fioricet PRN for pain - tylenol PRN for pain - zofran PRN for nausea Chest pain, ruled out ACS -Cardiology consult -Cardiac monitoring -Continue with aspirin -Trend troponin Chronic conditions: A. fib, hypertension -Continued with home medications DVT prophylaxis -Eliquis The patient is admitted with an anticipated less than 2 midnight stay for evaluation of afib CODE STATUS:Full Code Discussed with: Patient Anticipated discharge date: in am Anticipated discharge place: home
[2020-10-15] MEDS: MORPHINE SULFATE 4 MG/ML SYRINGE IVP PRN (20:59)
[2020-10-16] MEDS: MORPHINE SULFATE 4 MG/ML SYRINGE IVP PRN ×2 (01:12→05:36)
[2020-10-16] MEDS ORDERED: diphenhydrAMINE 25 MG CAP PO STA (01:28)
[2020-10-16 05:12] VITALS: RESP 18
[2020-10-16 08:10] VITALS: BP 134/71; PULSE 63; TEMP 98.7
[2020-10-16] MEDS: APIXABAN 5 MG TAB PO SCH (08:53)
[2020-10-16] MEDS: METOPROLOL SUCCINATE (ER) 25 MG TAB.ER.24H PO SCH (08:53)
[2020-10-16] MEDS: NITROFURANTOIN MONOHYD/M-CRYST 100 MG CAP PO SCH (08:53)
[2020-10-16] MEDS: LOSARTAN 25 MG TAB PO SCH (08:53)
[2020-10-16] MEDS ORDERED: TOPIRAMATE 25 MG TAB PO SCH (09:00)
[2020-10-16] MEDS ORDERED: LORazepam 2 MG/ML INJ IV STA (09:40)
[2020-10-16] MEDS ORDERED: predniSONE 20 MG TAB PO SCH (09:45)
--- NOTE | 2020-10-16 10:14 | P.DS ---
Providers Date of admission: 10/13/20 14:53 Expected date of discharge: 10/16/20 Attending physician: Sybil Ordonez MD Consults: 10/12/20 11:53 Consult Physician Routine Consulting Provider: [facility] Consult Reason/Comments: chest pain Do you want consulting provider notified?: Yes 10/15/20 09:48 Consult Physician Routine Consulting Provider: Husam Trevino Consult Reason/Comments: headache Do you want consulting provider notified?: Yes Primary care physician: Jodee [facility] Course: HPI The patient is a 65-year-old female with a PMH of A. fib on Eliquis and HTN who presented to the emergency room with complaints of chest pain. The patient notes that she was in her usual state of health until about 1 PM today when she suddenly developed a left-sided pressure-like chest discomfort. The pain was nonradiating, nonpleuritic, with no alleviating or exacerbating features, and was 7 out of 10. Patient notes that the pain gradually improved throughout the day and is currently a 3 out of 10. She reported associated nausea without vomiting and some shortness of breath. She denied dizziness, diaphoresis, palpitations. She also denied fever, chills, cough, leg swelling, or pain. She also reported no prior history of coronary artery disease or RI. In the emergency room, EKG revealed normal sinus rhythm at [address]/T-wave changes noted as reviewed by me. Chest x-ray was unremarkable. Laboratory evaluation remarkable for leukocytosis of 13.4, troponin 0.018. Hospital course and treatment: Patient was admitted to the hospital with chest pain, she was evaluated by cardiology, chest pain resolved. She will need to follow up with cardiology as an outpatient. 2-D echo was consistent with EF 55%. She has a history of atr ial fibrillation and was continued on her outpatient medications. She had headaches and was evaluated by neurology. Head CT was negative for acute findings. She was diagnosed with cephalgia, headache of unknown etiology. She will get a brain MRI today if negative be discharged home to follow-up with PCP and neurology as an outpatient. She has been prescribed Topamax. He also has a UTI and was given Rocephin and will be continued on Macrobid as an outpatient. She has a skin rash and will be prescribed prednisone. She was initially also admitted with acute hypoxic respiratory failure with lower lobe pneumonia and complicated UTI and was treated with antibiotics. She is not requiring any oxygen. She will be prescribed Augmentin as well. Tightness upon discharge: 1. Acute hypoxic respiratory failure central. 2. Left lower lobe pneumonia 3. Compensated UTI 4. Headache with cephalgia unknown etiology 5. Chronic atrial fibrillation 6. Obesity BMI 30.3 Patient Condition at Discharge: Serious Plan - Discharge Summary Discharge Rx Participant: No New Discharge Prescriptions: New predniSONE [Deltasone] 20 mg PO DAILY #5 tab Topiramate [Topamax] 25 mg PO BID 60 Days #30 tab Continue Metoprolol Succinate [Toprol XL] 25 mg PO BID Loperamide HCl [Imodium A-D] 1 - 2 mg PO DAILY PRN PRN Reason: Diarrhea Apixaban [Eliquis] 5 mg PO BID Acetaminophen/Diphenhydramine [Tylenol Pm Ex-Strength Caplet] 2 tab PO HS Nitrofurantoin Macrocrystal [Nitrofurantoin] 100 mg PO BID Losartan Potassium [Cozaar] 25 mg PO DAILY Flecainide Acetate [Tambocor] 100 mg PO DAILY PRN PRN Reason: AFIB Discharge Medication List Loperamide HCl [Imodium A-D] 1 - 2 mg PO DAILY PRN 01/06/18 [History] Metoprolol Succinate [Toprol XL] 25 mg PO BID 01/06/18 [History] Acetaminophen/Diphenhydramine [Tylenol Pm Ex-Strength Caplet] 2 tab PO HS 04/13/19 [History] Apixaban [Eliquis] 5 mg PO BID 04/13/19 [History] Flecainide Acetate [Tambocor] 100 mg PO DAILY PRN 10/11/20 [History] Losartan Potassium [Cozaar] 25 mg PO DAILY 10/11/20 [History] Nitrofurantoin Macrocrystal [Nitrofurantoin] 100 mg PO BID 10/11/20 [History] Topiramate [Topamax] 25 mg PO BID 60 Days #30 tab 10/16/20 [Rx] predniSONE [Deltasone] 20 mg PO DAILY #5 tab 10/16/20 [Rx] Follow up Appointment(s)/Referral(s): Jodee Ramachandran MD [Primary Care Provider] - 1-2 days
--- NOTE | 2020-10-16 12:11 | MR ---
EXAMINATION TYPE: MR angio head wo con DATE OF EXAM: 10/16/2020 COMPARISON: None HISTORY: New onset headache, rule out aneurysm. TECHNIQUE: Time of flight images focusing on the [place] were performed without contrast. FINDINGS: There is a 3 to 4 mm aneurysm of the left middle cerebral artery and the bifurcation. No other sizable aneurysms or vascular malformations are seen. 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
--- NOTE | 2020-10-16 12:58 | MR ---
EXAMINATION TYPE: MR brain wo/w con DATE OF EXAM: 10/16/2020 COMPARISON: None HISTORY: New onset headache, rule out aneurysm. TECHNIQUE: Multiplanar, multisequence images of the brain and brainstem is performed without and with IV contras t, utilizing 9 mL intravenous Gadavist . FINDINGS: Diffusion weighted images demonstrate no evidence of a recent infarct or other diffusion ab normality. There is no extra-axial fluid collection or significant white matter signal abnormality. There are a few tiny scattered nonspecific foci of abnormal increased signal intensity within the wh ite matter. The ventricular system and cisternal spaces are normal in size and appearance. The brain volume is age appropriate. Midline structures demonstrate normal morphology. The craniocervical junction appears within normal limits. Post contrast images demonstrate no abnormal enhancement. The dural venous sinuses appear pa tent. The visualized sinuses are clear and the globes are intact. There is a tiny aneurysmal dilatation of the left middle cerebral artery bifurcation. See MRA of the brain performed on this same date. 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 CT MRA of the brain of thi s same date. No other significant abnormality intracranially.
--- NOTE | 2020-10-16 13:06 | P.PN ---
Subjective Progress Note Date: 10/16/20 Per the patient nurse she stated that overnight the patient had the headache and the even though I asked for patient to get a morphine she got morphine. Patient stated that the headache continues to be over the right parietal region and feels its better today and now compared to earlier. Denies of any weakness, numbness, visual disturbance. Denies of any nausea or vomiting. Patient stated that prior of her come to the hospital she had the the chest pain then later she had the headache. She denies any history of headaches in the past. Objective - Vital Signs Vital signs: Vital Signs Temp 98.7 F 10/16/20 08:00 Pulse 63 10/16/20 08:00 Resp 18 10/16/20 08:00 BP 134/71 10/16/20 08:00 Pulse Ox 95 10/16/20 08:00 Intake & Output 10/15/20 10/16/20 10/16/20 18:59 06:59 18:59 Intake Total 820 Balance 820 Intake: Oral 820 Other: # Voids 3 2 - Exam GENERAL: The patient is lying in bed and is not in acute distress. NEUROLOGICAL: Higher mental function: The patient is awake, alert, oriented to self, place and time. Patient is following commands. No aphasia and no neglect. Cranial nerves: The pupils are round, right is 3mm while left is 4mm and reactive to light and accommodation. Visual land are full to confrontation throughout. Extraocular movement is intact no nystagmus is noted. Facial sensation is normal to touch throughout. The facial strength is normal throughout. Hearing is normal bilaterally to hand rub. Tongue is midline and moved [id number] without any difficulty. No dysarthria is noted. Shoulder sh rug is normal bilaterally. Motor: Gait is normal with normal arm swings. The strength is 5 over 5 t hroughout. Normal tone and bulk. Cerebellum: Normal finger to nose heel to chin bilaterally. Sensation: Sensation is normal to touch throughout. Reflexes (right/left): 2+ throughout. Plantars are downgoing bilaterally. - Labs CBC & Chem 7: 10/15/20 04:54 10/15/20 04:54 Labs: Abnormal Lab Results - Last 24 Hours (Table) 10/15/20 Range/Units 04:54 Glucose 113 H (70-110) mg/dL Microbiology - Last 24 Hours (Table) 10/13/20 08:59 Blood Culture - Preliminary Blood No Growth after 72 hours Assessment and Plan Assessment: Cephalgia--over the right parietal (unknow exact cause). Please avoid morphine since can cause headaches. I do not think the aneurysm is cause of headaches (since having headache over the right parietal region and aneurysm over the left MCA). Incidental left middle cerebral artery bifurcation measuring approximately 3-4 mm. Chest pain Complicated urinary tract infection Pneumonia Acute hypoxemic respiratory failure Atrial fibrillation on Eliquis Hypertension Plan: MRI of the brain as well as MRA of the head is reported as small aneurysm of the left middle cerebral artery bifurcation. The aneurysm off the left middle cerebral artery bifurcation measuring approximately 3-4 mm. No other significant abnormality intracranially. She was notified that she needs to follow-up with a neurosurgeon as well as neurologist as an outpatient and that she needs to follow up with a neurosurgeon as soon as possible. Regarding the headache I started the patient on Topamax 25 mg 1 tablet twice a day. Patient was notified if the headache continues to go up to 25 mg 2 tablets in the morning and 2 tablets at night. Currently on Fiorcet by mouth sets 1 tablet every 4 hours as needed I the primary team. Patient is given morphine 4 mg every 4 hours when necessary which and cause headaches. If possible to avoid it. I am not sure the cause of the patient's skin rash from the waist down what medication she was ALLERGIC to. There is no further neurological workup needed. The plan is discussed with the patient and her nurse. Husam Trevino MD Neuro-Hospitalist Time with Patient: Less than 30
== END 2020-10-16 13:32 | disposition home or self-care (01) | DRG 193 ==
LOC: EC 18:49 → 6NMEDSUR 22:04 → OBSVTOIN 10-13 14:53
PROVIDERS: ADMIT Internal Medicine; ATTEND Internal Medicine
DX: J18.9 Pneumonia, unspecified organism (principal); J96.01 Acute respiratory failure with hypoxia; I48.20 Chronic atrial fibrillation, unspecified; N39.0 Urinary tract infection, site not specified; Z20.822 Contact with and (suspected) exposure to COVID-19; D86.9 Sarcoidosis, unspecified; E66.9 Obesity, unspecified; I10 Essential (primary) hypertension; I48.0 Paroxysmal atrial fibrillation; Z68.30 Body mass index [BMI] 30.0-30.9, adult; R51.9 Headache, unspecified; Z79.01 Long term (current) use of anticoagulants; I66.02 Occlusion and stenosis of left middle cerebral artery; Z79.899 Other long term (current) drug therapy; Z82.49 Family history of ischemic heart disease and other diseases of the circulatory system; Z83.3 Family history of diabetes mellitus; Z80.42 Family history of malignant neoplasm of prostate; Z86.010 Personal history of colon polyps; Z87.19 Personal history of other diseases of the digestive system; Z87.891 Personal history of nicotine dependence; Z88.5 Allergy status to narcotic agent; R21 Rash and other nonspecific skin eruption; G89.29 Other chronic pain; M54.9 Dorsalgia, unspecified; Z98.51 Tubal ligation status
CPT/HCPCS: 36415; 70450; 70544; 70553; 71045; 71046; 80048; 80053; 81001; 83735; 83880; 84145; 84484; 85025; 85610; 85730; 87040; 87636; 93005; 93306; 94640; 94760; 96374; 96375; 99285

== ENCOUNTER 2022-02-10 09:58 | Day surgery (SDC) | payer BC ==
[2022-02-08 14:41] VITALS: BMI 30.2
[~2022-02-10 09:58] MED LIST: LACTATED RINGERS 1,000 ML IV SCH; LIDOCAINE 1% (10MG/ML) FOR IV START INTRADERMA PRN
[2022-02-10 10:42] VITALS: TEMP 97.6
[2022-02-10 10:45] LABS: Glucose,Whole Blood 111 mg/dL (70-110)
[2022-02-10] MEDS ORDERED: PROPOFOL 10 MG/ML 20 ML VIAL IV ONE (12:12)
--- NOTE | 2022-02-10 12:33 | P.PCN ---
Date of Procedure: 02/10/22 Procedure(s) Performed: BRIEF HISTORY: Patient is a 56-year-old pleasant white female scheduled for an elective colonoscopy as a part of variation of prior history of colon polyps. PROCEDURE PERFORMED: Colonoscopy. PREOPERATIVE DIAGNOSIS: History of colon polyps. IV sedation per Anesthesia. PROCEDURE: After informed consent was obtained, the patient, was brought into the endoscopy unit. IV sedation was administered by Anesthesia under continuous monitoring. Digital rectal examination was normal. Initially the Olympus CF-160 flexible video colonoscope was then inserted in the rectum, gradually advanced into the cecum without any difficulty. Careful examination was performed as the scope was gradually being withdrawn. Ileocecal valve and the appendiceal orifice were visualized and appeared normal. Prep was excellent. Mucosa of the cecum, ascending colon, transverse colon, descending colon, sigmoid colon, and rectum appeared normal. Retroflexion was performed in the rectum and no lesions were seen. The patient tolerated the procedure well. IMPRESSION: Normal-appearing colon from rectum to cecum with no evidence of colorectal neoplasia . RECOMMENDATIONS: Findings of this examination were discussed with the patient is a family.. She was advised to have a repeat screening colonoscopy in 5 years because of the prior history of colon polyps
[2022-02-10 12:59] VITALS: BP 132/70; PULSE 68; RESP 15
== END 2022-02-10 13:04 | disposition home or self-care (01) ==
LOC: ORWHC2ENDO 09:58
PROVIDERS: ATTEND Internal Medicine Gastroenterology
DX: Z12.11 Encounter for screening for malignant neoplasm of colon (principal); Z86.010 Personal history of colon polyps; I48.91 Unspecified atrial fibrillation; I67.1 Cerebral aneurysm, nonruptured; Z88.0 Allergy status to penicillin; Z88.5 Allergy status to narcotic agent
CPT/HCPCS: 45378; J2704

== ENCOUNTER → 2024-06-03 | Outpatient (CLI) | payer BC ==
--- NOTE | 2024-06-04 13:20 | MM ---
Reason for Exam: Screening (asymptomatic). Last mammogram was performed 9 year(s) and 0 month(s) ago. Patient History: Menarche at age 10. First Full-Term at age 19. Postmenopausal. Currently using Estrogen, beginning at age 38 for 18 years, 2 months. Currently using Progesterone, beginning at age 38 for 18 years, 2 months. Core Biopsy on the Right side. Excisional Biopsy on the Left side. Excisional Biopsy on the Left side. 07/09/2000, Benign Stereotactic Core Biopsy on the right side. Risk Values: [place] 5 year model risk: 2.3%. NCI Lifetime model risk: 6.7%. Prior Study Comparison: 12/14/2011 Bilateral Screening Mammogram, [facility]. 02/06/2013 Bilateral Screening Mammogram, [facility]. 05/26/2015 Bilateral Screening Mammogram, [facility]. Tissue Density: The breasts are almost entirely fatty. Findings: Analyzed By CAD. Right breast: There is no suspicious group of microcalcifications or new suspicious mass. Left breast: There is no suspicious group of microcalcifications or new suspicious mass. Loop recorder limits evaluation of the left breast. Overall Assessment: Negative, BI-RAD 1 Management: Screening Mammogram of both breasts in [address] [facility] will attempt to contact patient to return for supplemental views and ultrasound if indicated. Patient should continue monthly self-breast exams. A clinical breast exam by your physician is recommended on an annual basis. This exam should not preclude additional follow-up of suspicious palpable abnormalities. Note on Enid scores and lifetime risk: 1. A Enid score greater than 3% is considered moderate risk. If this is the case, consider specialist referral to assess eligibility for a risk reducing agent. 2. If overall lifetime risk for the development of breast cancer is 20% or higher, the patient may qualify for future screening with alternating mammogram and breast MRI. [facility], , 06/04/2024 1:16 PM. Electronically signed and approved by: Jovani Cancino DO
== END | disposition home or self-care (01) ==
LOC: RADMAMWWP 14:16
PROVIDERS: ATTEND Family Medicine
DX: Z12.31 Encounter for screening mammogram for malignant neoplasm of breast (principal); Z78.0 Asymptomatic menopausal state
CPT/HCPCS: 77063; 77067